=== PATIENT | male | born 1960 | race Caucasian/White ===

== ENCOUNTER → 2019-10-22 12:01 | Outpatient (CLI) | payer OTHER, SELFPAY ==
--- NOTE | ~2019-10-22 | XR_ITS ---
EXAMINATION: XR shoulder RT min 2V DATE: 10/22/2019 12:28 INDICATION: Right shoulder pain. TECHNIQUE: 4 views of right shoulder were obtained. COMPARISON: None. FINDINGS: Bone alignment is normal. No fracture. There is mild osteoarthritis of glenohumeral joint a nd acromioclavicular joint. IMPRESSION: 1. Mild polyarticular osteoarthritis. Reviewed, dictated and finalized at location B.
--- NOTE | ~2019-10-22 | XR_ITS ---
EXAMINATION: XR shoulder LT min 2V DATE: 10/22/2019 12:28 INDICATION: Left shoulder pain. TECHNIQUE: 4 views of left shoulder were obtained. COMPARISON: None. FINDINGS: Bone alignment is normal. No fracture. There is mild osteoarthritis of glenohumeral joint a nd acromioclavicular joint. IMPRESSION: 1. Mild polyarticular osteoarthritis. Reviewed, dictated and finalized at location B.
== END ==
PROVIDERS: PCP Family Medicine; Visit Provider Family Medicine
DX: M25.511 Pain in right shoulder (principal); M25.512 Pain in left shoulder; M19.012 Primary osteoarthritis, left shoulder; M19.011 Primary osteoarthritis, right shoulder
CPT/HCPCS: 73030

== ENCOUNTER → 2021-03-18 10:41 | Outpatient (CLI) | payer OTHER, SELFPAY ==
--- NOTE | ~2021-03-18 | XR_ITS ---
XR knee RT 3V DATE: 03/18/2021 10:57 INDICATION: Knee pain TECHNIQUE: AP, lateral, sunrise views COMPARISON: None FINDINGS: There is a lateral bipartite patella versus less likely old ununited patellar fracture. Probable infarct versus benign chondroid lesion along the distal femoral diametaphyseal area. Diffuse osteopenia. No fracture, dislocation, periosteal reaction or bone destruction is evident. Mild suprapatellar knee joint effusion is suggested. No radiopaque intra-articular loose body or chondrocalcinosis is noted. Knee joint spaces appear rela tively preserved. There is slight periarticular spurring of the medial tibial plateau. IMPRESSION: Probable bipartite patella Osteopenia Osteoarthritis at the medial compartment Reviewed, dictated and finalized at location A. MANAGER [employer]
--- NOTE | ~2021-03-18 | XR_ITS ---
XR knee LT 3V DATE: 03/18/2021 10:56 INDICATION: Knee pain TECHNIQUE: AP, lateral, sunrise views COMPARISON: None FINDINGS: There is diffuse osteopenia. There is prominent loss of joint space at the medial compartment with periarticular spurring. There i s mild periarticular spurring of the patellofemoral compartment. No fracture or dislocation, periosteal reaction or bone destruction. No joint effusion. No radiopaque intra-articular loose body or chondrocalcinosis is evident. IMPRESSION: Osteoarthritis involving particularly the medial compartment Reviewed, dictated and finalized at location A. [employer] SERVICES MANAGER
== END ==
PROVIDERS: PCP Family Medicine; Visit Provider Family Medicine
DX: M85.861 Other specified disorders of bone density and structure, right lower leg (principal); M17.0 Bilateral primary osteoarthritis of knee
CPT/HCPCS: 73562

== ENCOUNTER → 2021-07-22 07:42 | Outpatient (CLI) | payer OTHER, SELFPAY ==
--- NOTE | ~2021-07-22 | MR_ITS ---
EXAMINATION: MR knee LT wo con DATE: 07/22/2021 08:15 INDICATION: Left knee pain TECHNIQUE: Magnetic resonance imaging (MRI) of the left knee was performed without intravenous contra st. Sequences included coronal PD-weighted FSE, coronal PD-weighted FS FSE, sagittal T2-weighted FSE , sagittal PD-weighted FS FSE and axial PD weighted fat saturated FSE. COMPARISON: None. FINDINGS: Medial compartment: There is complex tear of the medial extruded medial meniscal body with longitudinal horizontal tear p henry which contacts the superior articular surface and which extends posteriorly into the posterior h orn. There is extensive full and near full-thickness cartilage loss with subtle irregularity to the a rticular cortex and scattered foci of mild subarticular edema-like marrow signal changes involving th e medial tibial plateau and weightbearing medial femoral condyle. Lateral compartment: Lateral meniscus is normal. Small region of chondral swelling and partial-thickness fissuring at the posterior medial aspect of the lateral tibial plateau. Articular cartilage in the remainder of the la teral compartment is otherwise normal. Patellofemoral compartment: Shallow chondral ulceration with full-thickness fissuring and mild underlying subarticular edema-like signal change at the medial patellar facet extending to the apical ridge. Cartilage at the lateral p atellar facet and trochlea remain normal. Ligaments and tendons: Anterior cruciate ligament is normal. Longitudinal split tear extending the length of the posterior c ruciate ligament. The medial collateral ligament and fibular collateral ligament complex are normal. Minimal laxity to the medial collateral ligament resulting from the joint space narrowing in the medi al compartment. The extensor mechanism is normal. The visualized medial and lateral hamstring tendons as well as the iliotibial band are normal. Fluid: Minimal left knee joint effusion at the suprapatellar pouch. A couple ganglion cysts posterior to the intercondylar notch measuring 1.5 cm and 1.3 cm in maximal diameters. No loose osteochondral bodies identified. Osseous/other: Normal marrow signal aside from the previous noted subarticular edema-like marrow signal changes in t he medial and patellofemoral compartments. No fracture or pathologic marrow replacing process. IMPRESSION: 1. Complex tear of the medial meniscus. 2. Tricompartmental osteoarthritis, severe with extensive high-grade chondromalacia in the medial com partment. 3. Longitudinal split tear extending the length of the posterior cruciate ligament. Reviewed, dictated and finalized at location A. IMPRESSION: 1. Complex tear of the medial meniscus. 2. Tricompartmental osteoarthritis, severe with extensive high-grade chondromal acia in the medial compartment. 3. Longitudinal split tear extending the length of the posterior cruciate ligam ent.
== END ==
PROVIDERS: PCP Family Medicine; Visit Provider Orthopaedic Surgery
DX: M17.12 Unilateral primary osteoarthritis, left knee (principal); S83.522A Sprain of posterior cruciate ligament of left knee, initial encounter; M22.42 Chondromalacia patellae, left knee
CPT/HCPCS: 73721

== ENCOUNTER 2022-02-24 07:41 | Outpatient (CLI) | payer OTHER, SELFPAY ==
--- NOTE | 2022-02-24 08:28 | ECG_ITS ---
Measurements Intervals [place] Rate: 64 P: -9 WA: 186 QRS: -1 QRSD: 90 T: 1 QT: 407 QTc: 422 Interpretive Statements SINUS RHYTHM INFERIOR MYOCARDIAL INFARCTION [40+ ms Q WAVE AND/OR ST/T ABNORMALITY IN II/aVF], PROBABLY OLD NO PREVIOUS ECG AVAILABLE FOR COMPARISON Electronically Signed On 02-24-2022 13:20:52 CERTIFIED PERSONAL CHEF by Mara Mckinely M.D.
[2022-02-24 09:10] LABS: Basophils Percent Auto 0.6 % (0.2-1.2); Eosinophils Absolute Auto 0.1 K/mm3 (0-0.3); Eosinophils Percent Auto 1.7 % (0-4.4); Hematocrit 44.2 % (42.0-52.0); Hemoglobin 15.2 g/dL (14.0-18.0); Immature Granulocyte Absolute 0.04 K/mm3 (0.00-0.031); Immature Granulocyte Percent A 0.6 % (0-0.5); Lymphocytes Absolute Auto 2.23 K/mm3 (0.9-3.2); Lymphocytes Percent Auto 33.8 % (18.3-44.2); Mean Corpuscular HGB Conc 34.4 g/dl (32-36); Mean Corpuscular Hemoglobin 31.7 pg (26-34); Mean Corpuscular Volume 92.3 fl (80-100); Mean Platelet Volume 9.1 fl (7.4-10.4); Monocytes Absolute Auto 0.5 K/mm3 (0.1-0.6); Monocytes Percent Auto 7.3 % (2.6-8.5); Neutrophils Absolute Auto 3.7 K/mm3 (1.3-6.7); Platelet Count Result 266 k/mm3 (150-375); Red Blood Count 4.79 M/mm3 (4.6-6.20); Red Cell Distribution Width 12.1 % (11.5-14.5); White Blood Count 6.6 K/mm3 (4.5-10.0)
[2022-02-24 09:13] LABS: Urine Cotinine NEGATIVE
[2022-02-24 09:14] LABS: Albumin Level 4.7 g/dL (3.5-5.1)
[2022-02-24 09:14] LABS: Hemoglobin A1C 5.5 % (<5.7)
[2022-02-24 09:17] LABS: Anion Gap 7 mmol/L (8-16); Blood Urea Nitrogen 16 mg/dL (9-20); Calcium 9.2 mg/dL (8.4-10.2); Carbon Dioxide 30 mmol/L (22-30); Chloride 104 mmol/L (98-107); Estimated Glomerular Filt Rate > 60; Glucose 102 mg/dL (65-110); Sodium 141 mmol/L (137-145)
== END 2022-02-24 07:42 | disposition home or self-care (01) ==
PROVIDERS: Anesthesiology; PCP Emergency Medicine; Visit Provider Orthopaedic Surgery
DX: M17.12 Unilateral primary osteoarthritis, left knee (principal); I10 Essential (primary) hypertension; Z01.818 Encounter for other preprocedural examination
CPT/HCPCS: 80048; 80307; 82040; 83036; 85025; 86850; 86900; 86901; 87081; 93005

== ENCOUNTER 2022-03-02 00:17 | Day surgery (SDC) | payer OTHER, SELFPAY ==
[2022-02-24 07:49] VITALS: BMI 27.5
[2022-02-24 08:05] VITALS: BP 114/80; PULSE 72; RESP 18; TEMP 36.6; O2SAT 98
--- NOTE | 2022-02-24 08:09 | PC.NURSE ---
Report to the Outpatient Waiting Room, entrance under the green pavilion located off [facility], at time __729 on date _03/02/22 . Planned Procedure Time: . Time changes happen often and if your time is changed the preop area will call you the afternoon before. - You and your visitor will be asked to self-screen and do not enter if you have any COVID symptoms. - Only one visitor is requested with a max of two and NO children visitors are allowed at this time. - The patient visitor may be requested to leave or wait in car when not with patient due to distancing restrictions. - A mask is optional within the hospital. Patients may have clear liquids (water, carbonated beverages, clear teas, apple juice) until 3 hours prior to surgery with a maximum of 20 ounces. - No food from midnight until time of surgery - Infants may have breast milk until 4 hours before surgery, infant formula 6 hours prior to surgery. - Children will be allowed to drink immediately following surgery. If applicable, please bring a bottle or sippy cup to assist with drinking. Juice, water, soda, and popsicles are readily available. For infants on formula, please bring formula the day of surgery. Pacifiers are allowed. Take the following medications with a SIP of water the morning of surgery: _FLUOXETINE Medications to discontinue per physician ALL VITAMINS AND SUPPLEMENTS 3 DAYS PRE OP Date to take last dose___02/26/22 Please no make-up, nail greenlandic, hairspray, perfume, deodorant, or body powder the day of surgery. No jewelry (including any body piercings) or valuables the day of surgery, leave them at home. Please take a shower or bath the night before, or the morning of, surgery with an antibacterial soap. Wear comfortable, loose fitting clothing. Children are encouraged to wear pajamas. - Jewelry must be removed prior to entering the operating room. Rings and piercings that are not removed may be cut off. - The hospital will not accept responsibility for valuables. - Please leave all valuables, including medications, at home the day of surgery. If you are going home after surgery, a licensed special needs bus driver must drive you home. - NO public transportation without another adult if you receive anesthesia. - We recommend that an adult stay with you for 24 hours following discharge. - We also recommend that you do not drive, make important decision, drink alcoholic beverages, or take any drugs that were not prescribed by your health care provider for at least 24 hours after your discharge time. Follow any additional instructions given to you from your surgeon. If you or anyone in your household have experienced Covid symptoms in the past week, please notify your surgeon or the nurse liaison at the phone number below for possible testing. VERBAL AND WRITTEN instructions given to __PATIENT and asked if any additional questions and then verbalized understanding. Patient advised to call surgeon office or pre surgery nurse liaison [phone] if any additional questions.
[2022-03-02] VITALS (18 sets, daily range): BP systolic 105–138; BP diastolic 69–93; PULSE 71–100; RESP 12–16; TEMP 36.2–37; O2SAT 90–100; BMI 26.9
--- NOTE | ~2022-03-02 | XR_ITS ---
Left Knee Technique: AP and lateral views were obtained. Clinical History: Postoperative COMPARISON: 03/18/2021 Findings: Patient is status post medial compartment hemiarthroplasty. No hardware convocation identif ied. There is minimal degenerative change of the patellofemoral compartment. Lateral compartment is u nremarkable. Postoperative changes noted in the soft tissues. No joint effusion is seen. Impression: Status post medial compartment hemiarthroplasty. Minimal degenerative change of the patellofemoral compartment. Reviewed, dictated and finalized at location M. [employer] ASSEM[employer]ER [employer]ER Impression: Status post medial compartment hemiarthroplasty. Minimal degenerative change of the patellofemoral compartment.
[2022-03-02] MEDS: ACETAMINOPHEN 500 MG TABLET 1000 MG PO (07:16)
[2022-03-02] MEDS: LACTATED RINGERS 1,000 ML 30 ML IV CONT ×3 (07:25→10:05)
[2022-03-02] MEDS: TRANEXAMIC ACID 1,000MG/ISO100 1,000 MG/100 ML BAG 200 MG IVPB (07:28)
--- NOTE | 2022-03-02 07:39 | WPDHPUPDATE1 ---
History and Physical Update Update Date/Time: 03/02/22 07:39 History and Physical has been reviewed, including an updated exam of the patient. There are NO changes in the patient's condition. Risks, benefits, and alternatives have been discussed and questions answered. Patient agrees to proceed with procedure.
[2022-03-02] MEDS: ceFAZolin 2 GM/D5W 50 ML 2 GM/50 ML BAG IVPB ×2 (07:55→16:09)
--- NOTE | 2022-03-02 07:55 | WPDANESPNB ---
Anes - Peripheral Nerve Block Date/Time: 03/02/22 07:55 I have discussed with the patient/family/POA the placement of a peripheral nerve block for post-operative pain management, including associated risks, benefits, complications, and side effects. Alternative methods of post-operative analgesia were detailed. Questions were solicited and answers provided to the satisfaction of the patient/family/POA. Time-Out: A pre-procedural Time-Out was completed immediately before starting the procedure and confirmed: Patient Identification, Site, Procedure, Patient Position and the Availability of Requisite Equipment. Clinical Indications: Acute post-operative pain management requested by the operative surgeon. Nerve Block Insertion Note Anes-nerve block: adductor canal left Patient position: supine Skin prep: chlorhexidine Needle: 22 gauge, stimulating, insulated echogenic needle. Needle length: 80 mm Technique: ultrasound Technique comment: mid2mg [id number] Injectate: bupivacaine 0.5% with epi 5 mcg/ml (30ml) Observations: tolerated well Complications: none Procedure start time:: 744 Procedure end time:: 0
--- NOTE | 2022-03-02 07:58 | WPDANESEPPF ---
Anes - Initial Pre Proc Eval Procedure: Operation Date: 03/02/22 07:30 Proposed Procedures p Left Knee Partial Replacement - Raghav Calzada MD Date/Time: 03/02/22 07:58 Surgeon: Raghav Calzada MD Pre Op Diagnosis: OA left knee Patient Data Age: 62 Gender: M Height: 1.85 m Weight: 92.5 kg Last Vital Signs Temp 36.2 C L 03/02/22 07:30 Pulse 82 03/02/22 07:30 Resp 16 03/02/22 07:30 BP 138/75 03/02/22 07:30 Pulse Ox 100 03/02/22 07:30 O2 Del Method Room Air 03/02/22 07:30 Allergies Allergy/AdvReac Type Severity Reaction Status Date / Time No Known Allergies Allergy Verified 02/24/22 10:22 Home Medications Medication Instructions Recorded Confirmed Type atorvastatin 40 mg tablet See Rx Instructions .Route 01/11/22 03/02/22 Rx .COMPLEX #90 tabs doxepin 50 mg capsule See Rx Instructions .Route 01/11/22 03/02/22 Rx .COMPLEX #90 caps fluoxetine 20 mg capsule See Rx Instructions .Route 01/11/22 03/02/22 Rx .COMPLEX #90 caps lisinopril 20 See Rx Instructions .Route 01/11/22 03/02/22 Rx mg-hydrochlorothiazide 25 mg tablet .COMPLEX #90 tabs zolpidem 10 mg tablet 10 mg PO .QD #90 tabs 01/11/22 03/02/22 Rx acetaminophen 650 mg 1,300 mg PO Q12H PRN Pain 02/24/22 03/02/22 History tablet,extended release (Tylenol Arthritis Pain) glucosamine-chondroitin 250 mg-200 1 tablet PO DAILY 02/24/22 03/02/22 History mg tablet (Osteo Bi-Flex) lysine 500 mg tablet (L-Lysine) 500 mg PO DAILY 02/24/22 03/02/22 History multivitamin 1 tablet PO DAILY 02/24/22 03/02/22 History niacin 50 mg tablet 50 mg PO BID 02/24/22 03/02/22 History apixaban 5 mg tablet (Eliquis) 5 mg PO BID PE prophylaxis s/p 03/01/22 Rx surgery 14 days #28 tabs Patient hx anesthesia problems: none Family hx anesthesia problems: none Results Review: All pre-operative results and documents have been reviewed as part of the pre-operative evaluation. [facility] Past Medical History Medical History Degenerative arthritis of knee, bilateral Family History Family History Mother Diabetes mellitus Depression Hypertension Father Hypertension Family history of elevated blood lipids Family history of cardiovascular disease Social History Social History Smoking packs per day: 1 Smoking cigarettes per day: 20.0 Years smoked: 15 Smoking pack-years: 15.00 Smoking status: Former smoker Tobacco type: cigarettes Second hand tobacco smoke exposure: No Smoking end date: 03/14/96 Additional smoking assessment comments: DENIES ANY FORM OF TOBACCO USE. STATES CHEWED TOBACCO LAST WAS 01/27/22 Alcohol intake: never Living arrangements: with family Spiritual care concerns: No Anes - Eval Final PreProcedure Day of Procedure 03/02/22 07:58 Patient weight: overweight Heart: regular rate and rhythm Lungs: clear to auscultation Airway: Mallampati scale class 1 Neurological: alert and oriented Last oral intake: >/= 8 hours ASA classification: III Emergent: no Anesthetic plan: proceed Anesthesia type and monitoring: general LMA and standard monitoring Results Review: All pre-operative results and documents have been reviewed as part of the pre-operative evaluation. Informed Consent: The patient's anesthetic plan and its attendant risks and benefits were discussed with the patient/family/POA. Questions were solicited and answers provided to the satisfaction of the patient/family/POA.
[2022-03-02] MEDS: ceFAZolin SODIUM 1 GM VIAL IV PUSH (09:17)
--- NOTE | 2022-03-02 10:05 | P.OP_ITS ---
Procedure Note - Detailed Date of Procedure 03/02/22 Pre-op Diagnosis OA left knee Post-op Diagnosis Same Procedure Performed Left knee medial unicompartmental replacement Surgeon Raghav Calzada MD Service Department Manager Melissa Abdalla Anesthesia General and Regional Description of Procedure The patient was identified and the proper site identified. In the preop holding area the anesthesia team performed a left lower extremity block. He was then taken to the operating room and transferred to the OR table placing him supine taking care to pad his torso and extremities. After general anesthetic induction and intubation. a nonsterile tourniquet was placed high on the left thigh. The extremity was positioned, prepped, and draped in the usual sterile fashion. The extremity was exsanguinated and the tourniquet was inflated to 300 mmHg remaining up for approximately 50 minutes. An anterior midline incision was made and sharp dissection carried down through the subcutaneous tissue to the extensor mechanism. A modified medial parapatellar arthrotomy was performed. The articular and meniscal cartilage of the lateral compartment was inspected and noted to be in excellent shape. Anterior and posterior cruciate ligaments were in continuity. There were extensive degenerative changes medial compartment and milder patellofemoral changes. The marginal osteophytes were removed from the notch and the medial aspect of the medial femoral condyle, and the remaining meniscal tissue was removed. The femur was sized to a medium. With the appropriate spoon and tibial guide, a tibial resection was made. This was sized to C. Using the mill, the flexion and extension gaps were balanced. A trial reduction was undertaken. The range of motion of the knee was noted to be from full extension to 120? of flexion with excellent stability through range of motion. The polyethylene insert tracked nicely. The trial components were removed. The real medium femur and size C tray for the left knee were cemented into place. The knee was held in about 30? of flexion while the cement cured. The tourniquet was released and excess cement was removed from the joint. Hemostasis was carried out. The knee was flushed with a copious amount of irrigation. After trialing, the appropriate real size 4 insert for the femoral component was inserted and the stability again assessed. The knee was noted to be stable as it was taken through range of motion. The periarticular tissues were injected with 60 mL of arthroplasty solution. Surgicel powder was applied deep to and superficial to the extensor mechanism. The extensor mechanism was repaired with 0 looped PDS suture, the subcu with 3-0 Monocryl and 2-0 Quill with tissue adhesive for the skin. A sterile dressing was applied. The patient tolerated the procedure well, was awakened, extubated, and taken to recovery room in stable condition. Estimated Blood Loss 200 Tourniquet Time 50 Drains No Packing No Pathology None sent Complications No immediate complications Condition Stable Disposition PACU [facility] Billing Surgery - Charge Forward: Surgery Billing ([id number])
[2022-03-02] MEDS: fentaNYL CITRATE INJ (*CRX) 100 MCG/2 ML VIAL 25 MCG IV PUSH ×8 (10:23→11:43)
[2022-03-02] MEDS: KETOROLAC 15 MG/ML VIAL (*BKC) IV PUSH ×2 (12:57→17:36)
[2022-03-02] MEDS: oxyCODONE HCL (*CRX) 5 MG TAB IR PO (13:12)
[2022-03-02] MEDS: ONDANSETRON INJ 4 MG/2 ML VIAL IV PUSH (13:12)
[2022-03-02] MEDS: SENNA/DOCUSATE SODIUM TABLET 2 TAB PO (16:14)
[2022-03-02] MEDS: oxyCODONE/ACETAMINOPHEN (*CRX) 5-325 MG TABLET 1 TABLET PO ×2 (16:14→20:02)
[2022-03-02] MEDS: NIACIN 50 MG TABLET PO (16:15)
[2022-03-02] MEDS: FAMOTIDINE 20 MG TABLET PO (20:02)
[2022-03-02] MEDS: DOXEPIN HCL 25 MG CAPSULE 50 MG PO (20:02)
[2022-03-02] MEDS: ZOLPIDEM TARTRATE (*CRX) 5 MG TABLET 10 MG PO (20:03)
[2022-03-03] MEDS: ceFAZolin 2 GM/D5W 50 ML 2 GM/50 ML BAG IVPB ×2 (00:41→08:50)
[2022-03-03] MEDS: KETOROLAC 15 MG/ML VIAL (*BKC) IV PUSH ×2 (00:41→05:49)
[2022-03-03] MEDS: oxyCODONE/ACETAMINOPHEN (*CRX) 5-325 MG TABLET 1 TABLET PO ×3 (00:42→08:56)
[2022-03-03 06:00] VITALS: BP 112/76; PULSE 72; RESP 16; TEMP 36.6; O2SAT 97
--- NOTE | 2022-03-03 07:21 | WPDANESPN ---
Anes - Prog Note Post-Op Date/Time: 03/03/22 07:21 Cardiovascular status: normal Respiratory status: normal Airway patency: baseline Mental status: baseline Post-Op hydration status: normal Vital Signs: Last Vital Signs Temp 36.6 C 03/03/22 06:00 Pulse 72 03/03/22 06:00 Resp 16 03/03/22 06:00 BP 112/76 03/03/22 06:00 Pulse Ox 97 03/03/22 06:00 O2 Del Method Room Air 03/02/22 12:40 O2 Flow Rate 2 03/02/22 12:15 Pain Score (VAS): 2 I/O: Intake & Output 03/02/22 03/02/22 03/03/22 15:59 23:59 07:59 Intake Total 740 520 600 Balance 740 520 600 Post-procedural complaints: none Patient Feedback: Patient satisfied with anesthetic care.
--- NOTE | 2022-03-03 07:41 | PM.DS ---
DS: Admitting Diagnosis Discharge Date 03/03/2022 Admitting Diagnosis Left knee osteoarthritis DS: Discharge Diagnosis Discharge Diagnosis (1) Status post left unicompartmental knee replacement: Code(s): Z96.652 - Presence of left artificial knee joint Status: Acute Plan 62-year-old male postop day 1 after left unicompartmental knee replacement with Dr. Calzada. Overall feeling very well this morning was able to participate with therapy yesterday. Dressing over the incision is clean and dry. No significant swelling or bruising at the surgical site. Postoperative wound care and medications were discussed in detail. Plan to remain 50% weight-bearing for a total of 6 weeks with a walker. He will follow up in 2 weeks in the office for wound check. He was informed to call our office with any further questions or concerns prior to his follow-up appointment. DS: Summary Hospital Course Reason for hospitalization: Observation after outpatient procedure Hospital Course: 62-year-old male admitted for observation after left unicompartmental knee replacement. Uneventful overnight stay. Pain is well controlled during exam this morning. Surgical dressing is clean and dry. He is also participated well with therapy yesterday and plan to do so again today prior to discharge. Postoperative instructions were discussed with this morning. Plan follow-up in 2 weeks for wound check Status at Discharge Functional status at discharge: uses cane/walker Overall status at discharge: patient is progressing back to baseline Time Spent with Patient Time attestation: Total time spent providing and/or coordinating discharge services: Time spent: Less than 30 minutes Exam Const: General: comfortable and no acute distress HENMT: Mouth: Yes moist mucous membranes Eyes: General: appearance normal, both eyes and all related structures Neck: Neck: supple Resp: Effort & Inspection: normal respiratory effort GI: Inspection: non-distended Skin: General skin exam: normal color and no erythema Neuro: Motor exam (neuro): Normal motor muscle tone present throughout Sensory Exam: normal sensation Extrem: Other: Exam of the left lower extremity demonstrates a clean and dry surgical dressing. No significant ecchymosis or swelling at the site. He is able to fully extend the knee with activation of the quadriceps. He is able to dorsiflex and plantar flex the foot without difficulty. Neurovascular status left lower extremity intact. Calves negative Psych: Mental Status: mental status grossly normal Radiology Reports: Comments: Left Knee Technique: AP and lateral views were obtained. Clinical History: Postoperative COMPARISON: 03/18/2021 Findings: Patient is status post medial compartment hemiarthroplasty. No hardware convocation identified. There is minimal degenerative change of the patellofemoral compartment. Lateral compartment is unremarkable. Postoperative changes noted in the soft tissues. No joint effusion is seen. Impression: Status post medial compartment hemiarthroplasty. Minimal degenerative change of the patellofemoral compartment. Reviewed, dictated and finalized at [facility]. T ADVISOR Discharge Plan Discharge Patient Disposition: Home, Self-Care Discharge Instructions: 3 times daily for 20 minutes each time, reclining in bed with ice packs over the incision and a pillow underneath the calf of the affected leg, not under the knee. Your wound is glued so it is okay to remove the dressing, get into the shower and get the wound wet in two days. Be sure to read through all the information that came from a my office and the hospital. Most of the answers you will need can be found that material. Call the office with any questions that you cannot find answers to, or concerns you may have. After the Chuckie
[2022-03-03 08:00] VITALS: O2SAT 97
[2022-03-03] MEDS: FAMOTIDINE 20 MG TABLET PO (08:54)
[2022-03-03] MEDS: SENNA/DOCUSATE SODIUM TABLET 2 TAB PO (08:54)
[2022-03-03] MEDS: APIXABAN 2.5 MG TABLET PO (08:55)
[2022-03-03] MEDS: hydroCHLOROthiazide 25 MG TABLET PO (08:55)
[2022-03-03] MEDS: FLUoxetine HCL 20 MG CAPSULE PO (08:55)
[2022-03-03] MEDS: NIACIN 50 MG TABLET PO (08:55)
[2022-03-03] MEDS: MULTIVITAMINS THERAPEUTIC TAB (*BKC) 1 TABLET PO (08:55)
[2022-03-03] MEDS: ATORVASTATIN 40 MG TABLET PO (08:55)
[2022-03-03] MEDS: lisinopriL 20 MG TABLET BY MOUTH (08:58)
[2022-03-03 09:18] VITALS: BP 132/89; PULSE 82; RESP 16; O2SAT 97
== END 2022-03-03 10:14 | disposition home or self-care (01) ==
LOC: ANHSURGERY 09:52 → ANHSUROVER 12:24
PROVIDERS: PCP Emergency Medicine; Visit Provider Orthopaedic Surgery
PROC: (CPT 27446; principal; 2022-03-02 07:30)
DX: M17.12 Unilateral primary osteoarthritis, left knee (principal); G89.18 Other acute postprocedural pain; Z87.891 Personal history of nicotine dependence
CPT/HCPCS: 27446; 64447; 73560; 80048; 80307; 82040; 83036; 85025; 86850; 86900; 86901; 87081; 93005; 97110; 97116; 97161; 97165; 97530; A9270; C1713; C1776; J0171; J0690; J1100; J1170; J1885; J2250; J2270; J2405; J2704; J2795; J3010; J7120

== ENCOUNTER 2022-03-11 14:39 | Inpatient (IN) | payer OTHER, SELFPAY ==
--- NOTE | ~2022-03-11 | US_ITS ---
EXAMINATION: US venous doppler [facility] DATE: 03/11/2022 16:35 INDICATION: Left lower limb pain. TECHNIQUE: Grayscale ultrasound images without and with compression and Doppler ultrasound images of the left lower extremity veins were obtained. COMPARISON: None. FINDINGS: The visualized portions of left common femoral vein, profunda (deep) femoral vein, femoral vein, popl iteal vein, peroneal veins, posterior tibial veins, and greater saphenous vein outflow are patent. IMPRESSION: 1. No deep venous thrombosis. Reviewed, dictated and finalized at location [facility] [employer]
[2022-03-11 14:44] VITALS: BP 124/90; PULSE 110; RESP 16; TEMP 36.2; O2SAT 100
[2022-03-11 15:11] LABS: Basophils Percent Auto 0.3 % (0.2-1.2); Eosinophils Absolute Auto 0.1 K/mm3 (0-0.3); Eosinophils Percent Auto 1.4 % (0-4.4); Hematocrit 37.7 % (42.0-52.0); Hemoglobin 12.8 g/dL (14.0-18.0); Lymphocytes Absolute Auto 1.71 K/mm3 (0.9-3.2); Lymphocytes Percent Auto 16.7 % (18.3-44.2); Mean Corpuscular Hemoglobin 32.2 pg (26-34); Mean Corpuscular Volume 94.7 fl (80-100); Mean Platelet Volume 8.2 fl (7.4-10.4); Monocytes Absolute Auto 0.9 K/mm3 (0.1-0.6); Monocytes Percent Auto 8.6 % (2.6-8.5); Neutrophils Absolute Auto 7.4 K/mm3 (1.3-6.7); Platelet Count Result 345 k/mm3 (150-375); Red Blood Count 3.98 M/mm3 (4.6-6.20); White Blood Count 10.3 K/mm3 (4.5-10.0)
[2022-03-11 15:20] LABS: Anion Gap 6 mmol/L (8-16); Blood Urea Nitrogen 15 mg/dL (9-20); Calcium 8.9 mg/dL (8.4-10.2); Carbon Dioxide 28 mmol/L (22-30); Chloride 103 mmol/L (98-107); Estimated CRCL calculation 83 ml/min; Estimated Glomerular Filt Rate > 60; Glucose 100 mg/dL (65-110); Potassium 4.4 mmol/L (3.4-5.0); Sodium 137 mmol/L (137-145)
[2022-03-11 15:38] LABS: INR 1.2; Prothrombin Time 14.6 Seconds (11.1-14.7)
[2022-03-11 15:39] LABS: Partial Thromboplastin Time 34.7 SECONDS (22.3-36.8)
--- NOTE | 2022-03-11 16:51 | ED.GENADULT ---
HPI - General Adult General Chief complaint: Recheck/Abnormal Lab/Rx Stated complaint: left knee redness, swelling Time Seen by Provider: 03/11/22 16:20 History of Present Illness HPI narrative: This is a 62-year-old male presenting ED with pain redness swelling of his left lower extremity. Patient had a knee operation on March 02. He is doing well until March 08 when he noticed increased pain and swelling of the joint. He contacted his orthopedic surgeon Dr. Calzada Who recommended he come to the ED for evaluation. Patient denies fever, chills, nausea vomiting or diarrhea. Related Data Home Medications Medication Instructions Recorded Confirmed acetaminophen 650 mg 1,300 mg PO Q12H PRN Pain 02/24/22 03/02/22 tablet,extended release (Tylenol Arthritis Pain) glucosamine-chondroitin 250 mg-200 1 tablet PO DAILY 02/24/22 03/02/22 mg tablet (Osteo Bi-Flex) lysine 500 mg tablet (L-Lysine) 500 mg PO DAILY 02/24/22 03/02/22 multivitamin 1 tablet PO DAILY 02/24/22 03/02/22 niacin 50 mg tablet 50 mg PO BID 02/24/22 03/02/22 Allergies Allergy/AdvReac Type Severity Reaction Status Date / Time No Known Allergies Allergy Verified 02/24/22 10:22 Review of Systems Review of Systems: CONSTITUTIONAL: Denies night sweats. EYES: No eye pain ENT: Denies rhinorrhea CARDIOVASCULAR: Denies palpitations RESPIRATORY: Denies hemoptysis GASTROINTESTINAL: Denies hematemesis GENITOURINARY: Denies hematuria. SKIN: Denies rash MUSCULOSKELETAL: Denies myalgia. NEUROLOGIC: Denies weakness. PSYCHIATRIC: Denies delusions [facility] Past Medical History Medical History Degenerative arthritis of knee, bilateral Family History Family History Mother Diabetes mellitus Depression Hypertension Father Hypertension Family history of elevated blood lipids Family history of cardiovascular disease Social History Social History Smoking packs per day: 1 Smoking cigarettes per day: 20.0 Years smoked: 15 Smoking pack-years: 15.00 Smoking status: Former smoker Tobacco type: cigarettes and smokeless tobacco Second hand tobacco smoke exposure: Yes (spouse smokes) Smoking end date: 03/14/98 Additional smoking assessment comments: DENIES ANY FORM OF TOBACCO USE. STATES CHEWED TOBACCO LAST WAS 01/27/22 Alcohol intake: never Substance use: never Substance use type: does not use Lack of Transportation: No Lack of Food: Never True Current Housing: I Have Housing Concerned About Future Housing: No Difficulty Paying Gas/Electric Bills: No Difficulty Paying for Meds: No Currently Unemployed: No Education: High School Diploma/GED Difficulty w/ Childcare or Family Care: No Spiritual care concerns: No Exam Narrative: APPEARANCE: No apparent distress. Head: atraumatic. EYES: EOMI, NOSE: Atraumatic NECK: Trachea midline RESPIRATORY: No increased rate of breathing CARDIOVASCULAR: RRR, ABDOMINAL: Non-distended MUSCULOSKELETAl: No obvious deformities NEURO: Alert. Moving 4/4 extremities SKIN:: Patient has areas of erythema, swelling and tenderness over the left lower extremity on the lateral portions of the leg and down the anterior mott. There is also some bruising in the posterior thigh and knee. PSYCHIATRIC: Normal affect Course Vital Signs Vital signs: Vital Signs Temperature 97.2 F L 03/11/22 14:44 Pulse Rate 110 H 03/11/22 14:44 Respiratory Rate 16 03/11/22 14:44 Blood Pressure 124/90 03/11/22 14:44 Pulse Oximetry 100 03/11/22 14:44 Temperature 97.2 F L 03/11/22 14:44 Pulse Rate 110 H 03/11/22 14:44 Respiratory Rate 16 03/11/22 14:44 Blood Pressure 124/90 03/11/22 14:44 Pulse Oximetry 100 03/11/22 14:44 Medical Decision Making MDM Narrative Medical decision making narrative:
[2022-03-11 17:24] VITALS: BP 110/96; PULSE 76; RESP 12; O2SAT 98
[2022-03-11] MEDS: ceFAZolin 2 GM/D5W 50 ML 2 GM/50 ML BAG IVPB (17:34)
[2022-03-11 18:19] LABS: Influenza A QL RT-PCR Negative (Negative); Influenza B QL RT-PCR Negative (Negative); RSV RNA, RT-PCR Negative (Negative); SARS-CoV-2 RNA PCR Negative
[2022-03-11] MEDS: HYDROcodone/acetaminophen (*CRX) 5-325 MG TABLET 1 TAB PO ×2 (18:38→23:02)
[2022-03-11 21:30] VITALS: BP 144/85; PULSE 101; RESP 18; TEMP 36.2; O2SAT 98
[2022-03-11 21:39] VITALS: BMI 27.6
--- NOTE | 2022-03-11 21:51 | ADMGEN ---
This patient, Roberto Carlos Hurley, was admitted to [facility] Surg Room 305-01. Patient/family oriented to hospital policies and general routines including ID bracelet, bed and alarms, visiting hours, pain management, procedures, bathroom and other care routines, personal items, smoking policy, room service/diet, and visiting hours. Information on how to activate the Rapid Response Team has been discussed. Patient/Family are encouraged to report perceived risks to care and to ask questions if they do not understand what they are told or what they should do.
[2022-03-11 22:12] VITALS: O2SAT 98
[2022-03-12] MEDS: ceFAZolin 2 GM/D5W 50 ML 2 GM/50 ML BAG IVPB ×3 (02:00→17:25)
[2022-03-12 06:00] VITALS: BP 113/67; PULSE 78; RESP 17; TEMP 36.2; O2SAT 96
[2022-03-12] MEDS: HYDROcodone/acetaminophen (*CRX) 5-325 MG TABLET 1 TAB PO ×3 (06:20→17:33)
[2022-03-12 06:55] LABS: Basophils Absolute Auto 0.1 K/mm3 (0.0-0.1); Basophils Percent Auto 0.7 % (0.2-1.2); Eosinophils Absolute Auto 0.2 K/mm3 (0-0.3); Eosinophils Percent Auto 2.6 % (0-4.4); Hematocrit 33.9 % (42.0-52.0); Hemoglobin 11.4 g/dL (14.0-18.0); Immature Granulocyte Absolute 0.06 K/mm3 (0.00-0.031); Immature Granulocyte Percent A 0.8 % (0-0.5); Lymphocytes Absolute Auto 1.69 K/mm3 (0.9-3.2); Lymphocytes Percent Auto 22.1 % (18.3-44.2); Mean Corpuscular HGB Conc 33.6 g/dl (32-36); Mean Corpuscular Hemoglobin 31.1 pg (26-34); Mean Corpuscular Volume 92.6 fl (80-100); Mean Platelet Volume 8.5 fl (7.4-10.4); Monocytes Absolute Auto 0.8 K/mm3 (0.1-0.6); Monocytes Percent Auto 10.1 % (2.6-8.5); Neutrophils Absolute Auto 4.9 K/mm3 (1.3-6.7); Neutrophils Percent Auto 63.7 % (45.5-73.1); Platelet Count Result 309 k/mm3 (150-375); Red Blood Count 3.66 M/mm3 (4.6-6.20); Red Cell Distribution Width 12.1 % (11.5-14.5); White Blood Count 7.6 K/mm3 (4.5-10.0)
[2022-03-12 08:00] VITALS: PULSE 78; RESP 17; O2SAT 96
--- NOTE | 2022-03-12 08:26 | PM.IMHP ---
H&P: HPI History of Present Illness Date/Time: 03/12/22 08:26 Chief Complaint: Left leg pain, cellulitis Narrative: 62-year-old male admitted for cellulitis of his left lower leg after recent unicompartmental left knee replacement on 03-02-[address] Calzada. He had been doing relatively well following the procedure it started to notice pain in the left lower leg associated with redness a few days ago. He denies any significant fevers or chills. He has been maintaining his 50% weight-bearing status on the left lower extremity without difficulty. He denies any drainage at the surgical site. He continues to take Eliquis for DVT prophylaxis. Venous doppler done in the ER has ruled out left lower extremity DVT. Review of Systems Review of Systems: All systems reviewed & are unremarkable except as noted in HPI and below Constitutional: Constitutional: Reports as per HPI and Reports no additional constitutional complaints Eyes: Eyes: Reports as per HPI and Reports no additional eye complaints ENT: Reports system reviewed and no additional complaints, except as documented, Reports as per HPI and Reports Normal hearing present Cardiovascular: Cardiovascular: Reports as per HPI and Reports no additional cardiovascular complaints Respiratory: Respiratory: Reports as per HPI, Reports no additional respiratory complaints and Denies dyspnea Gastrointestinal: Gastrointestinal: Reports no additional gastrointestinal complaints, Denies abdominal pain and Denies constipation Genitourinary: Genitourinary: Reports no additional male genitourinary complaints Musculoskeletal: Musculoskeletal: Reports as per HPI and Reports joint swelling (Left knee) Integumentary/Breasts: Skin/Breast: Reports as per HPI and Reports erythema (Left knee, left lower leg) Neurologic: Reports system reviewed and no additional complaints, except as documented, Denies Abnormal speech present and Denies confusion Psychiatric: Psychiatric: Reports no additional psychiatric complaints and Reports as per HPI [facility] Past Medical History Medical History Degenerative arthritis of knee, bilateral Family History Family History Mother Diabetes mellitus Depression Hypertension Father Hypertension Family history of elevated blood lipids Family history of cardiovascular disease Social History Social History Smoking packs per day: 1 Smoking cigarettes per day: 20.0 Years smoked: 15 Smoking pack-years: 15.00 Smoking status: Never smoker Tobacco type: cigarettes and smokeless tobacco Second hand tobacco smoke exposure: No Smoking end date: 03/14/98 Additional smoking assessment comments: DENIES ANY FORM OF TOBACCO USE. STATES CHEWED TOBACCO LAST WAS 01/27/22 Alcohol intake: never Substance use: never Substance use type: does not use Lack of Transportation: No Lack of Food: Never True Current Housing: I Have Housing Concerned About Future Housing: No Difficulty Paying Gas/Electric Bills: No Difficulty Paying for Meds: No Currently Unemployed: No Education: Trade/Vocational Certificate Difficulty w/ Childcare or Family Care: No Spiritual care concerns: No Meds Home Medications and Allergies Home Medications Medication Instructions Recorded Confirmed Type acetaminophen 650 mg 1,300 mg PO Q12H PRN Pain 02/24/22 03/11/22 History tablet,extended release (Tylenol Arthritis Pain) glucosamine-chondroitin 250 mg-200 1 tablet PO HS 02/24/22 03/11/22 History mg tablet (Osteo Bi-Flex) multivitamin 1 tablet PO DAILY 02/24/22 03/11/22 History niacin 50 mg tablet 50 mg PO BID 02/24/22 03/11/22 History apixaban 5 mg tablet (Eliquis) 5 mg PO BID PE prophylaxis s/p 03/01/22 03/11/22 Rx surgery 14 days #28 tabs oxycodone 5 mg tablet 5 mg PO Q4
[2022-03-12] MEDS: SENNA/DOCUSATE SODIUM TABLET 2 TAB PO ×2 (10:09→17:25)
[2022-03-12] MEDS: MULTIVITAMINS THERAPEUTIC TAB (*BKC) 1 TABLET PO (10:09)
[2022-03-12] MEDS: APIXABAN 5 MG TABLET PO ×2 (10:09→17:25)
[2022-03-12] MEDS: FLUoxetine HCL 20 MG CAPSULE PO (10:09)
[2022-03-12] MEDS: ATORVASTATIN 40 MG TABLET PO (10:09)
[2022-03-12] MEDS: NIACIN 50 MG TABLET PO ×2 (10:09→17:25)
[2022-03-12] MEDS: polyethylene glycoL 3350 17 GM POWD.PACK PO (10:09)
[2022-03-12 14:33] VITALS: BP 132/80; PULSE 101; RESP 17; TEMP 36.9; O2SAT 96
[2022-03-12] MEDS: ZOLPIDEM TARTRATE (*CRX) 5 MG TABLET 10 MG PO (20:49)
[2022-03-12] MEDS: DOXEPIN HCL 25 MG CAPSULE 50 MG PO (20:50)
[2022-03-12] MEDS: lisinopriL 20 MG TABLET PO (20:51)
[2022-03-12] MEDS: hydroCHLOROthiazide 25 MG TABLET PO (20:51)
[2022-03-12 22:00] VITALS: BP 130/87; PULSE 84; RESP 17; TEMP 35.9; O2SAT 97
[2022-03-13] MEDS: ceFAZolin 2 GM/D5W 50 ML 2 GM/50 ML BAG IVPB ×2 (02:29→08:04)
[2022-03-13 06:00] VITALS: BP 115/77; PULSE 89; RESP 18; TEMP 36.1; O2SAT 97
[2022-03-13 07:54] LABS: Basophils Percent Auto 0.5 % (0.2-1.2); Eosinophils Absolute Auto 0.2 K/mm3 (0-0.3); Eosinophils Percent Auto 1.9 % (0-4.4); Hematocrit 35.2 % (42.0-52.0); Hemoglobin 11.9 g/dL (14.0-18.0); Immature Granulocyte Absolute 0.07 K/mm3 (0.00-0.031); Immature Granulocyte Percent A 0.8 % (0-0.5); Lymphocytes Absolute Auto 1.52 K/mm3 (0.9-3.2); Lymphocytes Percent Auto 17.9 % (18.3-44.2); Mean Corpuscular HGB Conc 33.8 g/dl (32-36); Mean Corpuscular Hemoglobin 31.8 pg (26-34); Mean Corpuscular Volume 94.1 fl (80-100); Mean Platelet Volume 8.5 fl (7.4-10.4); Monocytes Absolute Auto 0.6 K/mm3 (0.1-0.6); Monocytes Percent Auto 7.2 % (2.6-8.5); Neutrophils Absolute Auto 6.1 K/mm3 (1.3-6.7); Neutrophils Percent Auto 71.7 % (45.5-73.1); Platelet Count Result 311 k/mm3 (150-375); Red Blood Count 3.74 M/mm3 (4.6-6.20); Red Cell Distribution Width 12.1 % (11.5-14.5); White Blood Count 8.5 K/mm3 (4.5-10.0)
[2022-03-13] MEDS: HYDROcodone/acetaminophen (*CRX) 5-325 MG TABLET 1 TAB PO (08:04)
[2022-03-13] MEDS: polyethylene glycoL 3350 17 GM POWD.PACK PO (08:05)
[2022-03-13] MEDS: SENNA/DOCUSATE SODIUM TABLET 2 TAB PO (08:05)
[2022-03-13] MEDS: NIACIN 50 MG TABLET PO (08:05)
[2022-03-13] MEDS: APIXABAN 5 MG TABLET PO (08:05)
[2022-03-13] MEDS: FLUoxetine HCL 20 MG CAPSULE PO (08:05)
[2022-03-13] MEDS: MULTIVITAMINS THERAPEUTIC TAB (*BKC) 1 TABLET PO (08:05)
--- NOTE | 2022-03-13 08:17 | PM.DS ---
DS: Admitting Diagnosis Discharge Date March 13, 2022 Admitting Diagnosis Left lower extremity cellulitis DS: Discharge Diagnosis Discharge Diagnosis (1) Cellulitis of left lower extremity: Code(s): L03.116 - Cellulitis of left lower limb Status: Acute Assessment and Plan: Responded very well to the IV antibiotics. Has been switched to Bactrim DS one p.o. b.i.d. to be taken for the next week. (2) Status post left unicompartmental knee replacement: Code(s): Z96.652 - Presence of left artificial knee joint Status: Acute Assessment and Plan: Has a follow-up appointment in my office this coming week. It was instructed to keep that. As far as his postoperative rehab which she is doing on his own and walker use, none of that has changed. Plan See above DS: Summary Hospital Course Reason for hospitalization: IV antibiotics for cellulitis left lower extremity. Hospital Course: Patient contacted the office concerned about redness and swelling left lower extremity. Was seen in the ER and the diagnosis of cellulitis made. Was admitted for IV antibiotics. Responded very well to these quickly and is going to be discharged home on oral antibiotics. Is going to be discharged on hospital day two. Status at Discharge Functional status at discharge: uses cane/walker (50% weight-bearing left lower extremity) Overall status at discharge: patient is progressing back to baseline Time Spent with Patient Time attestation: Total time spent providing and/or coordinating discharge services: Time spent: Less than 30 minutes Exam Const: General: cooperative, alert and awake Orientation/consciousness: patient oriented x3 HENMT: Head: normal to inspection Ears: hearing grossly normal bilaterally Resp: Effort & Inspection: able to speak in complete sentences GI: Inspection: non-distended GI Palp: No abdominal tenderness Neuro: General: patient oriented x3 Extrem: Other: Has got a bronze erythema much of left lower extremity consistent with extravasation of blood into the soft tissues. Area of cellulitis along the tibial crest receiving. No irritability with range of motion of the left knee. Only mild effusion left knee. Exam otherwise unremarkable. Psych: Mental Status: mental status grossly normal DS: Data Data Completed and Pending Labs on day of discharge: Labs from last 24 hours 03/13/22 07:15 WBC 8.5 RBC 3.74 L Hgb 11.9 L Hct 35.2 L MCV 94.1 MCH 31.8 MCHC 33.8 RDW 12.1 Plt Count 311 MPV 8.5 Immature Gran % (Auto) 0.8 H Neut % (Auto) 71.7 Lymph % (Auto) 17.9 L Talbot % (Auto) 7.2 Eos % (Auto) 1.9 Baso % (Auto) 0.5 Lymph # (Auto) 1.52 Talbot # (Auto) 0.6 Eos # (Auto) 0.2 Baso # (Auto) 0.0 Abs Immat Gran (auto) 0.07 H Absolute Neuts (auto) 6.1 Absolute Nucleated RBC 0.0 Nucleated RBC % 0.0 Discharge Plan Discharge Attending physician on discharge: Raghav Calzada Discharging Clinician: Raghav Calzada Anticipated Discharge Date/Time: 03/13/22 08:02 Patient Disposition: Home, Self-Care Activity: may shower, follow weight bearing status and other - see discharge instructions Diet: as tolerated Wound Care Instructions: other - see discharge instructions Discharge Instructions: Continue to use the walker full-time with only 50% weight left lower extremity until the six week point from surgery. Take all of the oral antibiotics that are prescribed. Keep her follow-up appointment this coming Tuesday. Contact the office with any questions prior to this. Ice and elevate the left lower extremity to help keep swelling down. Continue to do your knee therapy exercises every day. Stand Alone Forms: General Discharge Information Follow-up/Referrals: Raghav Calzada MD [Physician] - Discharge Medications: New sulfamethoxazole-trimethoprim 800-160 mg tablet 1 tablet PO Q12H Qty: 14 0RF Continued multivitamin
== END 2022-03-13 10:50 | disposition home or self-care (01) | DRG 920 ==
LOC: ANHED 16:56 → ANH3MEDSUR 21:21
PROVIDERS: Emergency Medicine; Nurse Practitioner; Admitting Provider Orthopaedic Surgery; Emergency Provider Emergency Medicine; PCP Emergency Medicine; Visit Provider Orthopaedic Surgery
DX: L76.82 Other postprocedural complications of skin and subcutaneous tissue (principal); L03.116 Cellulitis of left lower limb; Z96.652 Presence of left artificial knee joint; M17.0 Bilateral primary osteoarthritis of knee; Z20.822 Contact with and (suspected) exposure to COVID-19; Z87.891 Personal history of nicotine dependence
CPT/HCPCS: 36415; 80048; 85025; 85610; 85730; 87637; 93971; 96365; 99285; A9270; J0690

== ENCOUNTER 2022-11-29 07:15 | Day surgery (SDC) | payer OTHER, SELFPAY ==
[2022-11-09 13:41] VITALS: BMI 26.2
[2022-11-29] MEDS: LACTATED RINGERS 1,000 ML 150 ML IV CONT (08:10)
--- NOTE | 2022-11-29 08:17 | PM.HPGS ---
History of Present Illness History of Present Illness Consent: Risks, benefits, and alternatives have been discussed and questions answered. Patient agrees to proceed with procedure. Chief complaint: Neoplasm Screening Narrative: Roberto Carlos Hurley is a 62 year old male Presents for screening colonoscopy. Patient's current weight appetite and bowel movements are normal. Patient denies abdominal pain. He has had no bleeding. Family history is noncontributory. Patient denies any abdominal pain. Patient's previous colonoscopy 10 or 11 years ago was unremarkable. Review of Systems Review of Systems: Review of systems is noncontributory. 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 Calzada History of tonsillectomy Family History Family History Mother Diabetes mellitus Depression Hypertension Father Hypertension Family history of elevated blood lipids Family history of cardiovascular disease Social History Social History Smoking packs per day: 1 Smoking cigarettes per day: 20.0 Years smoked: 15 Smoking pack-years: 15.00 Smoking status: Former smoker Tobacco type: cigarettes Smokeless tobacco user: chewing tobacco Second hand tobacco smoke exposure: No Smoking end date: 03/14/98 Additional smoking assessment comments: patient currently uses chewing tobacco Alcohol intake: never Substance use: never Substance use type: does not use Lack of Transportation: No Lack of Food: Never True Current Housing: I Have Housing Concerned About Future Housing: No Difficulty Paying Gas/Electric Bills: No Difficulty Paying for Meds: No Currently Unemployed: No Education: High School Diploma/GED Difficulty w/ Childcare or Family Care: No Living arrangements: with family Occupation/Education: retired Spiritual care concerns: No Meds Home Medications and Allergies Home Medications Medication Instructions Recorded Confirmed Type acetaminophen 650 mg 1,300 mg PO Q12H PRN Pain 02/24/22 11/29/22 History tablet,extended release (Tylenol Arthritis Pain) glucosamine-chondroitin 250 mg-200 1 tablet PO HS 02/24/22 11/29/22 History mg tablet (Osteo Bi-Flex) multivitamin 1 tablet PO DAILY 02/24/22 11/29/22 History niacin 50 mg tablet 50 mg PO BID 02/24/22 11/29/22 History atorvastatin 40 mg tablet 40 mg PO DAILY 03/11/22 11/29/22 History doxepin 50 mg capsule 50 mg PO QHS 03/11/22 11/29/22 History lisinopril 20 1 tablet PO HS 03/11/22 11/29/22 History mg-hydrochlorothiazide 25 mg tablet zolpidem 10 mg tablet 10 mg PO HS #90 tabs 09/08/22 11/29/22 Rx sodium,potassium,mag sulfates 17.5 See Rx Instructions PO .COMPLEX 09/30/22 11/29/22 Rx gram-3.13 gram-1.6 gram oral soln #354 mL (Suprep Bowel Prep Kit) fluoxetine 20 mg capsule 20 mg PO QAM #90 caps 10/08/22 11/29/22 Rx Allergies Allergy/AdvReac Type Severity Reaction Status Date / Time No Known Allergies Allergy Verified 11/29/22 07:58 Exam Narrative: Physical exam reveals patient signs stable. HEENT exam is unremarkable. Patient is anicteric. Lungs ar clear to auscultation and percussion. Heart is without murmur or extra sounds. Abdomen bowel sounds are present soft nontender with no organomegaly. Digital external rectal exam is normal. Assessment and Plan Assessment and plan (1) Encounter for screening colonoscopy: Code(s): Z12.11 - Encounter for screeni
--- NOTE | 2022-11-29 08:53 | WPDANESEPPF ---
Anes - Initial Pre Proc Eval Procedure: Operation Date: 11/29/22 09:30 Proposed Procedures p Screening Colonoscopy - Jovan Mott MD Date/Time: 11/29/22 08:53 Surgeon: Jovan Mott MD Pre Op Diagnosis: Neoplasm Screening Patient Data Age: 62 Gender: M Height: 1.85 m Weight: 89.9 kg Allergies Allergy/AdvReac Type Severity Reaction Status Date / Time No Known Allergies Allergy Verified 11/29/22 07:58 Home Medications Medication Instructions Recorded Confirmed Type acetaminophen 650 mg 1,300 mg PO Q12H PRN Pain 02/24/22 11/29/22 History tablet,extended release (Tylenol Arthritis Pain) glucosamine-chondroitin 250 mg-200 1 tablet PO HS 02/24/22 11/29/22 History mg tablet (Osteo Bi-Flex) multivitamin 1 tablet PO DAILY 02/24/22 11/29/22 History niacin 50 mg tablet 50 mg PO BID 02/24/22 11/29/22 History atorvastatin 40 mg tablet 40 mg PO DAILY 03/11/22 11/29/22 History doxepin 50 mg capsule 50 mg PO QHS 03/11/22 11/29/22 History lisinopril 20 1 tablet PO HS 03/11/22 11/29/22 History mg-hydrochlorothiazide 25 mg tablet zolpidem 10 mg tablet 10 mg PO HS #90 tabs 09/08/22 11/29/22 Rx sodium,potassium,mag sulfates 17.5 See Rx Instructions PO .COMPLEX 09/30/22 11/29/22 Rx gram-3.13 gram-1.6 gram oral soln #354 mL (Suprep Bowel Prep Kit) fluoxetine 20 mg capsule 20 mg PO QAM #90 caps 10/08/22 11/29/22 Rx Patient hx anesthesia problems: none Family hx anesthesia problems: none Results Review: All pre-operative results and documents have been reviewed as part of the pre-operative evaluation. 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 Calzada History of tonsillectomy Family History Family History Mother Diabetes mellitus Depression Hypertension Father Hypertension Family history of elevated blood lipids Family history of cardiovascular disease Social History Social History Smoking packs per day: 1 Smoking cigarettes per day: 20.0 Years smoked: 15 Smoking pack-years: 15.00 Smoking status: Former smoker Tobacco type: cigarettes Smokeless tobacco user: chewing tobacco Second hand tobacco smoke exposure: No Smoking end date: 03/14/98 Additional smoking assessment comments: patient currently uses chewing tobacco Alcohol intake: never Substance use: never Substance use type: does not use Lack of Transportation: No Lack of Food: Never True Current Housing: I Have Housing Concerned About Future Housing: No Difficulty Paying Gas/Electric Bills: No Difficulty Paying for Meds: No Currently Unemployed: No Education: High School Diploma/GED Difficulty w/ Childcare or Family Care: No Living arrangements: with family Occupation/Education: retired Spiritual care concerns: No Anes - Eval Final PreProcedure Day of Procedure 11/29/22 08:53 Patient weight: normal Heart: regular rate and rhythm Lungs: decreased breath sounds Airway: Mallampati scale class 1 Neurological: alert and oriented Last oral intake: >/= 8 hours ASA classification: III Emergent: no Anesthetic plan: proceed Anesthesia type and monitoring: general GIVS and standard monitoring Results Review: All pre-operative results and documents have been reviewed as part of the pre-operative evaluation. Informed Consent: The patient's anesthetic plan and its attendant risks and benefits were discussed with the patient/family
[2022-11-29 09:13] VITALS: BP 109/81; PULSE 77; RESP 16; TEMP 36.8; O2SAT 97
[2022-11-29 09:41] VITALS: BP 108/60; PULSE 78; RESP 14; O2SAT 95
[2022-11-29 09:51] VITALS: BP 112/89; PULSE 66; RESP 14; O2SAT 99
[2022-11-29 10:01] VITALS: BP 121/75; PULSE 64; RESP 15; O2SAT 99
--- NOTE | 2022-11-29 10:33 | WPDANESPN ---
Anes - Prog Note Post-Op Date/Time: 11/29/22 10:33 Cardiovascular status: normal Respiratory status: normal Airway patency: baseline Mental status: baseline Post-Op hydration status: normal Vital Signs: Last Vital Signs Temp 36.8 C 11/29/22 09:13 Pulse 64 11/29/22 10:01 Resp 15 11/29/22 10:01 BP 121/75 11/29/22 10:01 Pulse Ox 99 11/29/22 10:01 O2 Del Method Room Air 11/29/22 10:01 Pain Score (VAS): 0 I/O: Intake & Output 11/28/22 11/29/22 11/29/22 23:59 07:59 15:59 Intake Total 800 Balance 800 Patient Feedback: Patient satisfied with anesthetic care.
== END 2022-11-29 10:21 | disposition home or self-care (01) ==
PROVIDERS: PCP Emergency Medicine; Visit Provider Internal Medicine Gastroenterology
PROC: 0DJD8ZZ Inspection of Lower Intestinal Tract, Via Natural or Artificial Opening Endoscopic (ICD-10-PCS; CPT 45378; principal; 2022-11-29 09:30)
DX: Z12.11 Encounter for screening for malignant neoplasm of colon (principal); K57.30 Diverticulosis of large intestine without perforation or abscess without bleeding; K64.8 Other hemorrhoids
CPT/HCPCS: 45378

== ENCOUNTER 2023-02-02 12:50 | Outpatient (CLI) | payer OTHER, SELFPAY ==
--- NOTE | 2023-02-02 12:58 | ECG_ITS ---
Measurements Intervals Stout Rate: 88 P: -13 MS: 174 QRS: -4 QRSD: 93 T: 5 QT: 362 QTc: 439 Interpretive Statements SINUS RHYTHM LOW QRS VOLTAGE IN PRECORDIAL LEADS VOLTAGE CRITERIA FOR LVH CONSIDER INFERIOR INFARCT, AGE INDETERMINATE BASELINE ARTIFACT- I, II, III, AVR, AVL ABNORMAL ECG COMPARED TO ECG 02/24/2022 08:52:33 NO SIGNIFICANT CHANGES Electronically Signed On 02-02-2023 19:57:27 CHAIRMAN & CEO by Jeet Rose D.O.
[2023-02-02 13:29] LABS: Anion Gap 12 mmol/L (8-16); Blood Urea Nitrogen 15 mg/dL (9-20); Calcium 9.7 mg/dL (8.4-10.2); Carbon Dioxide 27 mmol/L (22-30); Chloride 100 mmol/L (98-107); Estimated Glomerular Filt Rate > 60; Glucose 103 mg/dL (65-110); Potassium 3.8 mmol/L (3.4-5.0); Sodium 139 mmol/L (137-145)
== END 2023-02-02 12:51 | disposition home or self-care (01) ==
LOC: ANHSURGERY 12:53
PROVIDERS: Anesthesiology; PCP Emergency Medicine; Visit Provider Surgery
DX: K46.9 Unspecified abdominal hernia without obstruction or gangrene (principal); Z79.899 Other long term (current) drug therapy; I10 Essential (primary) hypertension; R94.31 Abnormal electrocardiogram [ECG] [EKG]
CPT/HCPCS: 36415; 80048; 86850; 86900; 86901; 93005

== ENCOUNTER 2023-02-11 00:22 | Day surgery (SDC) | payer OTHER, SELFPAY ==
--- NOTE | 2023-02-01 13:58 | PC.NURSE ---
Report to the Outpatient Waiting Room, entrance under the green pavilion located off [facility], at time _0630_ on date _02/11/23_. Planned Procedure Time: _0830__. Time changes happen often and if your time is changed the preop area will call you the afternoon before. - You and your visitor will be asked to self-screen and do not enter if you have any COVID symptoms. - A mask is optional within the hospital at this time. Patients may have clear liquids (water, carbonated beverages, clear teas, apple juice) until 3 hours prior to surgery with a maximum of 20 ounces. - No food from midnight until time of surgery - Infants may have breast milk until 4 hours before surgery, infant formula 6 hours prior to surgery. - Children will be allowed to drink immediately following surgery. If applicable, please bring a bottle or sippy cup to assist with drinking. Juice, water, soda, and popsicles are readily available. For infants on formula, please bring formula the day of surgery. Pacifiers are allowed. Take the following medications with a SIP of water the morning of surgery: __Fluoxetine ___ DO NOT STOP ANY OF YOUR OTHER PRESCRIPTION MEDICATIONS PRIOR TO SURGERY ?EXCEPT THE FOLLOWING Medications to discontinue per physician _Vitamins or supplements _3 days prior Date to take last dose Please no make-up, nail swedish, hairspray, perfume, deodorant, or body powder the day of surgery. No jewelry (including any body piercings) or valuables the day of surgery, leave them at home. Please take a shower or bath the night before, or the morning of, surgery with an antibacterial soap. Wear comfortable, loose fitting clothing. Children are encouraged to wear pajamas. - Jewelry must be removed prior to entering the operating room. Rings and piercings that are not removed may be cut off. - The hospital will not accept responsibility for valuables. - Please leave all valuables, including medications, at home the day of surgery. If you are going home after surgery, a licensed driver lifter of sanitation truck must drive you home. - NO public transportation without another adult if you receive anesthesia. - We recommend that an adult stay with you for 24 hours following discharge. - We also recommend that you do not drive, make important decision, drink alcoholic beverages, or take any drugs that were not prescribed by your health care provider for at least 24 hours after your discharge time. For Pediatric surgeries, we recommend two adults accompany the child home. Follow any additional instructions given to you from your surgeon. If you or anyone in your household have experienced Covid symptoms in the past week, please notify your surgeon or the nurse liaison at the phone number below for possible testing. Telephone instructions given to _patient__and asked if any additional questions and then verbalized understanding. Patient advised to call surgeon office or pre surgery nurse liaison [phone] if any additional questions.
[2023-02-01 14:11] VITALS: BMI 26.1
--- NOTE | 2023-02-07 16:24 | PM.SD2 ---
Same Day Admit/Disch: HPI History of Present Illness Chief complaint: bilateral inguinal hernias Narrative: Roberto Carlos Hurley is a 63 year old male whom I saw last summer. He had been noticing pain in his right groin with heavy exertion. Particularly he rides his bicycle over 10 miles a day. He notices particular discomfort while riding his bike. He had an exam with his primary care provider, Fred Leung PA-C. She was able to palpate a right inguinal hernia. I saw him in August and he had a reducible right inguinal hernia which was sizable. He also had a smaller left inguinal hernia which had been causing him no symptoms. After discussion of the alternatives and the recommended procedure, he wishes to proceed with robotic laparoscopic repair of bilateral inguinal hernias with mesh. He wanted to wait and do this in the winter time and we plan to go ahead on February 11 as scheduled. 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 Calzada History of tonsillectomy Family History Family History Mother Diabetes mellitus Depression Hypertension Father Hypertension Family history of elevated blood lipids Family history of cardiovascular disease Social History Social History Smoking packs per day: 1 Smoking cigarettes per day: 20.0 Years smoked: 15 Smoking pack-years: 15.00 Smoking status: Former smoker Tobacco type: smokeless tobacco Smokeless tobacco user: chewing tobacco Second hand tobacco smoke exposure: No Smoking end date: 03/14/98 Additional smoking assessment comments: Chewing tobacco- 20 years Alcohol intake: never Substance use: never Substance use type: does not use Living arrangements: with family Occupation/Education: retired Spiritual care concerns: No Same Day Admit/Disch: Med Pre-admit Medications Home Medications Medication Instructions Recorded Confirmed Type acetaminophen 650 mg 1,300 mg PO DAILY PRN Pain 02/24/22 02/11/23 History tablet,extended release (Tylenol Arthritis Pain) glucosamine-chondroitin 250 mg-200 1 tablet PO DAILY 02/24/22 02/11/23 History mg tablet (Osteo Bi-Flex) multivitamin 1 tablet PO DAILY 02/24/22 02/11/23 History niacin 50 mg tablet 50 mg PO BID 02/24/22 02/11/23 History fluoxetine 20 mg capsule 20 mg PO QAM #90 caps 10/08/22 02/11/23 Rx atorvastatin 40 mg tablet 40 mg PO DAILY #90 tabs 12/21/22 02/11/23 Rx doxepin 50 mg capsule 50 mg PO QHS #90 caps 12/21/22 02/11/23 Rx lisinopril 20 1 tablet PO HS #90 tabs 12/21/22 02/11/23 Rx mg-hydrochlorothiazide 25 mg tablet zolpidem 10 mg tablet 10 mg PO HS #180 tabs 12/21/22 02/11/23 Rx ketorolac 10 mg tablet 10 mg PO Q6H 4 days #16 tabs 02/11/23 Rx oxycodone-acetaminophen 5 mg-325 0.5 - 1 tablet PO Q6H PRN pain #10 02/11/23 Rx mg tablet tabs Review of Systems Review of Systems All systems reviewed & are unremarkable except as noted in HPI and below (HPI and those items noted below) Constitutional Constitutional: Denies chills and Denies fever(s) Cardiovascular Cardiovascular: Denies chest pain, Denies diaphoresis, Denies dyspnea and Denies paroxysmal nocturnal dyspnea Respiratory Respiratory: Denies chest congestion, Denies cough and Denies dyspnea Integumentary/Breasts Skin/Breast: Denies lesions and Denies rash Psychiatric Psychiatric: Reports abnormal sleep pattern (Insomnia, corrected with doxepin and zolpidem) Exam Const: General:
[2023-02-11] VITALS (10 sets, daily range): BP systolic 101–120; BP diastolic 55–75; PULSE 58–76; RESP 12–20; TEMP 36.2–36.3; O2SAT 92–100; BMI 26.3
[2023-02-11] MEDS: LACTATED RINGERS 1,000 ML 30 ML IV CONT ×2 (06:15→10:14)
[2023-02-11] MEDS: ACETAMINOPHEN 500 MG TABLET 1000 MG PO (06:30)
[2023-02-11] MEDS: KETOROLAC 15 MG/ML VIAL (*BKC) IV PUSH (06:31)
--- NOTE | 2023-02-11 07:12 | WPDANESEPPF ---
Anes - Initial Pre Proc Eval Procedure: Operation Date: 02/11/23 07:30 Proposed Procedures p Robotic Laparoscopic Bilateral Inguinal Hernia Repair with Mesh - Han Quintero MD Date/Time: 02/11/23 07:12 Surgeon: Han Quintero MD Pre Op Diagnosis: bilateral inguinal hernias Patient Data Age: 63 Gender: M Height: 1.85 m Weight: 90.5 kg Allergies Allergy/AdvReac Type Severity Reaction Status Date / Time No Known Allergies Allergy Verified 02/11/23 06:36 Home Medications Medication Instructions Recorded Confirmed Type acetaminophen 650 mg 1,300 mg PO DAILY PRN Pain 02/24/22 02/11/23 History tablet,extended release (Tylenol Arthritis Pain) glucosamine-chondroitin 250 mg-200 1 tablet PO DAILY 02/24/22 02/11/23 History mg tablet (Osteo Bi-Flex) multivitamin 1 tablet PO DAILY 02/24/22 02/11/23 History niacin 50 mg tablet 50 mg PO BID 02/24/22 02/11/23 History fluoxetine 20 mg capsule 20 mg PO QAM #90 caps 10/08/22 02/11/23 Rx atorvastatin 40 mg tablet 40 mg PO DAILY #90 tabs 12/21/22 02/11/23 Rx doxepin 50 mg capsule 50 mg PO QHS #90 caps 12/21/22 02/11/23 Rx lisinopril 20 1 tablet PO HS #90 tabs 12/21/22 02/11/23 Rx mg-hydrochlorothiazide 25 mg tablet zolpidem 10 mg tablet 10 mg PO HS #180 tabs 12/21/22 02/11/23 Rx Patient hx anesthesia problems: none Family hx anesthesia problems: none Results Review: All pre-operative results and documents have been reviewed as part of the pre-operative evaluation. 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 Calzada History of tonsillectomy Family History Family History Mother Diabetes mellitus Depression Hypertension Father Hypertension Family history of elevated blood lipids Family history of cardiovascular disease Social History Social History Smoking packs per day: 1 Smoking cigarettes per day: 20.0 Years smoked: 15 Smoking pack-years: 15.00 Smoking status: Former smoker Tobacco type: smokeless tobacco Smokeless tobacco user: chewing tobacco Second hand tobacco smoke exposure: No Smoking end date: 03/14/98 Additional smoking assessment comments: Chewing tobacco- 20 years Alcohol intake: never Substance use: never Substance use type: does not use Living arrangements: with family Occupation/Education: retired Spiritual care concerns: No Anes - Eval Final PreProcedure Day of Procedure 02/11/23 07:12 Patient weight: overweight Heart: regular rate and rhythm Lungs: clear to auscultation Airway: Mallampati scale class II Neurological: alert and oriented Last oral intake: >/= 8 hours ASA classification: III Emergent: no Anesthetic plan: proceed Anesthesia type and monitoring: general ETT and standard monitoring Results Review: All pre-operative results and documents have been reviewed as part of the pre-operative evaluation. Informed Consent: The patient's anesthetic plan and its attendant risks and benefits were discussed with the patient/family/POA. Questions were solicited and answers provided to the satisfaction of the patient/family/POA.
--- NOTE | 2023-02-11 07:14 | WPDHPUPDATE1 ---
History and Physical Update Update Date/Time: 02/11/23 07:14 History and Physical has been reviewed, including an updated exam of the patient. There are NO changes in the patient's condition. Risks, benefits, and alternatives have been discussed and questions answered. Patient agrees to proceed with procedure.
[2023-02-11] MEDS: ceFAZolin 2 GM/D5W 50 ML 2 GM/50 ML BAG IVPB (07:30)
[2023-02-11] MEDS: BUPIVACAINE/EPINEPHRINE 0.5% 50 ML VIAL INFILTRATE (08:09)
--- NOTE | 2023-02-11 10:18 | W.PM.PROC2 ---
Procedure Note - Detailed Date of Procedure 02/11/23 Pre-op Diagnosis bilateral inguinal hernias Post-op Diagnosis Same Procedure Performed Robotic laparoscopic repair bilateral inguinal hernias with mesh Surgeon Han Quintero MD Hand Lacer Jovan CAO Anesthesia General and Local (0.5% Marcaine with epinephrine) Indications Patient began noticing some right groin pain while riding his bicycle last August. He saw his primary care provider who was able to palpate a right inguinal hernia. I saw him in the office last summer and found that he had not only a right inguinal hernia but also a left inguinal hernia. After discussion, he is taken to surgery now for laparoscopic repair of bilateral inguinal hernias using the de Lolita robot. Findings Patient had an indirect hernia on the right side. The left side had both an indirect and a direct hernia. Description of Procedure Patient was taken to surgery and induced into general anesthesia. The abdomen is prepped and draped. Local anesthesia was infiltrated in the left upper abdomen. Incision was made in the varies needle was introduced into the abdominal cavity. Saline drop technique was used to check that the varies needle had an intraperitoneal location. After adequate insufflation, the varies needle was removed and a 5 mm applied Medical optical trocar was then placed in the left upper abdomen. With the scope in this location, the 1st human resources office assistant placed the right-sided port. Prior to placement of each of the ports, local was infiltrated into the skin and the abdominal wall. Once the right-sided port was placed, local was infiltrated over the midline trocar. Incision was made and another 8 mm trocar was placed here. Finally the 5 mm port on the left side was removed and an 8 mm robotic trocar was placed there. The robot was brought into the field and the camera was docked. Camera was also targeted. Then the operating ports were docked and introduced on the right and left side. Patient was in Trendelenburg. I started on the right side which was the more symptomatic. A peritoneal flap was taken down over the inguinal area. Dissection was carried out medially to Donald's ligament and the pubis. Also medially we dissected beyond the midline. Peritoneal flap was then continued laterally trying to leave all the fatty tissue on the flap attached to the abdominal wall. Finally we went to the area of the inguinal hernia. Some fatty tissue was reduced from the hernia and then the spermatic cord and vasculature to the right testicle was carefully dissected off the peritoneum and the hernia was completely reduced. Cautery was used for hemostasis and very little bleeding occurred. The peritoneum was then further dissected so there was over 4 cm of abdominal wall posterior to the lower margin of the hernia defect for mesh placement. When the right side was dissected, I then turned my attention to the left side. Similarly a peritoneal flap was created. Medially the flap was dissected down to the pubis and Donald's ligament was exposed. I dissected posterior to Donald's ligament a couple of cm. We connected the retro peritoneal dissection from the left side with that of the right side. I then continued the dissection laterally and till the flap was continued well below the pectinate line. I then dissected the flap in the area of the indirect hernia. There was some fatty tissue in the inguinal canal. This was carefully reduced from the hernia defect. I then also dissected some additional fatty tissue as well as the peritoneum away from the vas deferens and the vasculature to the left testicle. The flap was dissected so it was well away from the cord structures and there was at least 4 cm available for mesh to lie below the indirect hernia defect. I then turned my attention to the direct hernia defect. This seemed to be more anterior. I dissected the fatty tissue and reduced this from the hernia defect. T
[2023-02-11] MEDS: fentaNYL CITRATE INJ (*CRX) 100 MCG/2 ML VIAL 25 MCG IV PUSH ×4 (10:48→11:03)
[2023-02-11] MEDS: oxyCODONE HCL (*CRX) 5 MG TAB IR PO (11:24)
== END 2023-02-11 12:39 | disposition home or self-care (01) ==
PROVIDERS: PCP Emergency Medicine; Visit Provider Surgery
PROC: 8E0Y4CZ Robotic Assisted Procedure of Lower Extremity, Percutaneous Endoscopic Approach (ICD-10-PCS; CPT 49650; principal; 2023-02-11 07:30)
DX: K40.20 Bilateral inguinal hernia, without obstruction or gangrene, not specified as recurrent (principal); F17.220 Nicotine dependence, chewing tobacco, uncomplicated; Z82.49 Family history of ischemic heart disease and other diseases of the circulatory system
CPT/HCPCS: 49650; S2900; A9270; C1781; J0690; J1100; J1170; J1885; J2250; J2405; J2704; J3010; J7030; J7120

== ENCOUNTER → 2023-02-28 08:50 | Outpatient (CLI) | payer OTHER, SELFPAY ==
--- NOTE | ~2023-02-28 | US_ITS ---
US soft tissue groin LT 02/28/2023 09:18 Indication: Bilateral inguinal hernia. Status post left hernia repair on 02/11/2023. Procedure: High-resolution Limited ultrasound of the left groin Comparison: No prior studies for comparison. Findings: There is a complex fluid collection in the left groin measuring 2.6 x 2.6 x 2.5 cm. No inte rnal vascularity. Impression: 1: Complex fluid collection left groin corresponding to palpable abnormality measuring 2.6 cm maximum dimension, most likely postoperative hematoma. Recommend follow-up ultrasound as clinically warrante d. Reviewed, dictated and finalized at location [facility]. [facility] Impression: 1: Complex fluid collection left groin corresponding to palpable abnormality me asuring 2.6 cm maximum dimension, most likely postoperative hematoma. Recommend follow-up ultrasound as clinically warranted.
== END ==
PROVIDERS: PCP Emergency Medicine; Visit Provider Surgery
DX: K40.20 Bilateral inguinal hernia, without obstruction or gangrene, not specified as recurrent (principal)
CPT/HCPCS: 76882

== ENCOUNTER 2023-06-22 10:16 | Outpatient (CLI) | payer OTHER, SELFPAY ==
[2023-06-22 13:01] LABS: Basophils Absolute Auto 0.1 K/mm3 (0.0-0.1); Basophils Percent Auto 0.7 % (0.2-1.2); Eosinophils Absolute Auto 0.1 K/mm3 (0-0.3); Eosinophils Percent Auto 1.6 % (0-4.4); Hematocrit 45.5 % (42.0-52.0); Hemoglobin 14.8 g/dL (14.0-18.0); Immature Granulocyte Absolute 0.02 K/mm3 (0.00-0.031); Immature Granulocyte Percent A 0.3 % (0-0.5); Lymphocytes Percent Auto 36.1 % (18.3-44.2); Mean Corpuscular HGB Conc 32.5 g/dl (32-36); Mean Corpuscular Hemoglobin 30.9 pg (26-34); Mean Platelet Volume 9.3 fl (7.4-10.4); Monocytes Absolute Auto 0.7 K/mm3 (0.1-0.6); Monocytes Percent Auto 9.7 % (2.6-8.5); Neutrophils Absolute Auto 3.6 K/mm3 (1.3-6.7); Neutrophils Percent Auto 51.6 % (45.5-73.1); Platelet Count Result 285 k/mm3 (150-375); Red Blood Count 4.79 M/mm3 (4.6-6.20); Red Cell Distribution Width 12.9 % (11.5-14.5); White Blood Count 6.9 K/mm3 (4.5-10.0)
[2023-06-22 13:19] LABS: Alanine Aminotransferase 33 U/L (6-50); Albumin Level 4.5 g/dL (3.5-5.1); Alkaline Phosphatase 78 U/L (38-126); Anion Gap 5 mmol/L (4-12); Aspartate Amino Transferase 65 U/L (17-59); Bilirubin,Total 0.6 mg/dL (0.2-1.3); Blood Urea Nitrogen 22 mg/dL (9-20); Calcium 9.8 mg/dL (8.4-10.2); Carbon Dioxide 28 mmol/L (22-30); Chloride 106 mmol/L (98-107); Cholesterol 191 mg/dL (0-200); Estimated Glomerular Filt Rate > 60; Glucose 97 mg/dL (65-110); HDL Direct 54 mg/dL; Potassium 4.4 mmol/L (3.4-5.0); Sodium 139 mmol/L (137-145); Triglycerides 64 mg/dL (<150)
[2023-06-22 13:36] LABS: LDL Cholesterol Direct 110 mg/dL
[2023-06-22 18:56] LABS: Hemoglobin A1C 5.5 % (<5.7)
== END 2023-06-22 10:17 | disposition home or self-care (01) ==
LOC: ANHGOSHLAB 10:17
PROVIDERS: PCP Emergency Medicine; Visit Provider Emergency Medicine
DX: E78.2 Mixed hyperlipidemia (principal); I10 Essential (primary) hypertension; R73.03 Prediabetes
CPT/HCPCS: 36415; 80053; 80061; 83036; 85025

== ENCOUNTER 2023-06-22 10:23 | Outpatient (CLI) | payer OTHER, SELFPAY ==
--- NOTE | ~2023-06-22 | XR_ITS ---
Left Shoulder Technique: AP and axillary views were obtained. Clinical History: Pain Findings: No fracture or dislocation is seen. Osseous alignment is anatomic. The glenohumeral and acr omioclavicular joint spaces are preserved. Soft tissues are unremarkable. Impression: Unremarkable left shoulder radiographs. Reviewed, dictated and finalized at [facility]. Impression: Unremarkable left shoulder radiographs.
--- NOTE | ~2023-06-22 | XR_ITS ---
Right Shoulder Technique: AP and axillary views were obtained. Clinical History: Pain Findings: No fracture or dislocation is seen. Osseous alignment is anatomic. The glenohumeral and acr omioclavicular joint spaces are preserved. Soft tissues are unremarkable. Impression: Unremarkable right shoulder radiographs. Reviewed, dictated and finalized at [facility]. Impression: Unremarkable right shoulder radiographs.
== END 2023-06-22 10:24 ==
PROVIDERS: PCP Emergency Medicine; Visit Provider Emergency Medicine
DX: M25.511 Pain in right shoulder (principal); M25.512 Pain in left shoulder
CPT/HCPCS: 73030

== ENCOUNTER 2023-07-16 13:52 | Emergency (ER) | payer OTHER, SELFPAY ==
--- NOTE | 2023-07-16 13:58 | ED.WOUNDLAC ---
HPI - Wound/Laceration General Chief Complaint: Wound/Laceration Stated Complaint: R FINGER LACERATION Time Seen by Provider: 07/16/23 14:06 Source: patient and RN notes reviewed Mode of arrival: ambulatory Limitations: no limitations History of Present Illness HPI narrative: 63-year-old male presents concern for laceration to the distal 3rd digit of the right hand.. Reports prior to arrival he lacerated on a lawnmower blade. He reports he is up-to-date on his tetanus vaccination he denies decreased strength, sensation, range of motion in the digit Related Data Home Medications Medication Instructions Recorded Confirmed acetaminophen 650 mg 1,300 mg PO DAILY PRN Pain 02/24/22 07/16/23 tablet,extended release (Tylenol Arthritis Pain) glucosamine-chondroitin 250 mg-200 1 tablet PO DAILY 02/24/22 07/16/23 mg tablet (Osteo Bi-Flex) multivitamin 1 tablet PO DAILY 02/24/22 07/16/23 niacin 50 mg tablet 50 mg PO BID 02/24/22 07/16/23 Allergies Allergy/AdvReac Type Severity Reaction Status Date / Time No Known Allergies Allergy Verified 07/16/23 14:02 Review of Systems Review of Systems: CONSTITUTIONAL: Denies malaise, chills, sweats, or fever. 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00 Smoking status: Former smoker Tobacco type: smokeless tobacco Smokeless tobacco user: chewing tobacco Second hand tobacco smoke exposure: No Smoking end date: 03/14/98 Additional smoking assessment comments: Chewing tobacco- 20 years Alcohol intake: never Substance use: never Substance use type: does not use Do You Feel Safe in your Home?: Yes Lack of Transportation: No Lack of Food: Never True Current Housing: I Have Housing Concerned About Future Housing: Decline to Answer Difficulty Paying Gas/Electric Bills: Decline to Answer Difficulty Paying for Meds: Decline to Answer Currently Unemployed: Decline to Answer Education: High School Diploma/GED Difficulty w/ Childcare or Family Care: Decline to Answer Living arrangements: with family Occupation/Education: retired Spiritual care concerns: No Comments At time of signature, agree with nursing past medical, surgical, social and family history. There is no relevant family history pertinent to the presenting complaint Exam Narrative: GENERAL: Well-appearing, well-nourished, and in no acute distress. HEAD: Normocephalic EYES: PERRLA, conjunctivae clear NECK: Supple. CHEST: Speaks in full sentences. No respiratory distress. HEART: Regular rate and rhythm. Normal and equal peripheral pulses. EXTREMITIES: 3rd digit of right hand has grossly normal strength and sensation. 5/5 strength with digit flexion, extension. Range of motion jacquelyn
[2023-07-16 14:07] VITALS: BP 134/100; PULSE 76; RESP 20; TEMP 37; O2SAT 96
== END 2023-07-16 15:00 | disposition home or self-care (01) ==
PROVIDERS: Emergency Provider Nurse Practitioner; PCP Emergency Medicine
DX: S61.212A Laceration without foreign body of right middle finger without damage to nail, initial encounter (principal); W28.XXXA Contact with powered lawn mower, initial encounter; Z87.891 Personal history of nicotine dependence; M17.11 Unilateral primary osteoarthritis, right knee; Z96.652 Presence of left artificial knee joint
CPT/HCPCS: 12001; 99212; G0463

== ENCOUNTER 2024-03-16 12:38 | Outpatient (CLI) | payer MEDICARE, OTHER, SELFPAY ==
[2024-03-16 15:19] LABS: Hematocrit 42.3 % (42.0-52.0); Hemoglobin 14.6 g/dL (14.0-18.0); Mean Corpuscular HGB Conc 34.5 g/dl (32-36); Mean Corpuscular Hemoglobin 31.6 pg (26-34); Mean Corpuscular Volume 91.6 fl (80-100); Mean Platelet Volume 9.1 fl (7.4-10.4); Platelet Count Result 275 k/mm3 (150-375); Red Blood Count 4.62 M/mm3 (4.6-6.20); Red Cell Distribution Width 12.3 % (11.5-14.5); White Blood Count 8.1 K/mm3 (4.5-10.0)
[2024-03-16 15:21] LABS: Alanine Aminotransferase 30 U/L (6-50); Albumin Level 4.3 g/dL (3.5-5.1); Alkaline Phosphatase 77 U/L (38-126); Anion Gap 2 mmol/L (4-12); Aspartate Amino Transferase 41 U/L (17-59); Bilirubin,Total 0.5 mg/dL (0.2-1.3); Blood Urea Nitrogen 16 mg/dL (9-20); Calcium 9.7 mg/dL (8.4-10.2); Carbon Dioxide 29 mmol/L (22-30); Chloride 107 mmol/L (98-107); Cholesterol 166 mg/dL (0-200); Estimated Glomerular Filt Rate > 60; Glucose 97 mg/dL (65-110); HDL Direct 48 mg/dL; Potassium 4.3 mmol/L (3.4-5.0); Sodium 138 mmol/L (137-145); Triglycerides 92 mg/dL (<150)
[2024-03-16 15:32] LABS: LDL Cholesterol Direct 83 mg/dL
[2024-03-16 15:51] LABS: Prostate Specific Antigen 0.5 ng/mL (< OR = 4.0); Thyroid Stimulating Hormone 0.928 uIU/mL (0.465-4.680)
[2024-03-16 17:57] LABS: Hemoglobin A1C 5.5 % (<5.7)
== END 2024-03-16 12:39 | disposition home or self-care (01) ==
LOC: ANHGOSHLAB 12:40
PROVIDERS: PCP Internal Medicine; Visit Provider Family Medicine
DX: E78.2 Mixed hyperlipidemia (principal); I10 Essential (primary) hypertension; R73.03 Prediabetes; Z12.5 Encounter for screening for malignant neoplasm of prostate; Z79.899 Other long term (current) drug therapy
CPT/HCPCS: 36415; 80053; 80061; 83036; 84153; 84443; 85027; G0103

== ENCOUNTER 2024-09-17 09:50 | Outpatient (CLI) | payer MEDICARE, SELFPAY ==
--- NOTE | ~2024-09-17 | CT_ITS ---
Noncontrast CT scan left shoulder CLINICAL HISTORY: Preoperative planning TECHNIQUE: Axial noncontrast imaging of the left shoulder was performed. Sagittal and coronal reforma tted images were constructed. Dose reduction technique was used on this scan by utilizing automated e xposure control and iterative reconstruction technique. The dose-length product (DLP) was 228.00 mGy- cm. Findings: No acute fracture or dislocation seen. Humeral head is high riding, suggestive of underlyin g full-thickness rotator cuff tear. There is early mild acetabular is elevation of the acromion. AC j oint otherwise intact. Glenohumeral joint also intact otherwise. Probable small glenohumeral joint ef fusion. No florinda muscle atrophy identified. No gross soft tissue mass or fluid collection seen. IMPRESSION: High riding humeral head suggests underlying rotator cuff tear. No fracture or dislocation. Reviewed, dictated and finalized at [facility].
--- NOTE | 2024-09-17 10:39 | ECG_ITS ---
Test Date: 2024-09-17 10:48:40 Measurements Intervals [place] Rate: 65 P: 6 MO: 192 QRS: 3 QRSD: 97 T: 6 QT: 408 QTc: 427 Interpretive Statements SINUS RHYTHM No previous ECG available for comparison Electronically Signed On 09-17-2024 22:18:02 CDT by Jeferson Santos M.D.
[2024-09-17 11:28] LABS: Hematocrit 40.8 % (42.0-52.0); Hemoglobin 13.8 g/dL (14.0-18.0)
[2024-09-17 11:40] LABS: Albumin Level 4.1 g/dL (3.5-5.1); Estimated Glomerular Filt Rate > 60; Glucose 111 mg/dL (65-110)
[2024-09-17 11:48] LABS: Hemoglobin A1C 5.6 % (<5.7)
== END 2024-09-17 09:51 | disposition home or self-care (01) ==
PROVIDERS: PCP Nurse Practitioner; Visit Provider Orthopaedic Surgery
DX: M89.8X2 Other specified disorders of bone, upper arm (principal); M19.011 Primary osteoarthritis, right shoulder; M19.012 Primary osteoarthritis, left shoulder; I10 Essential (primary) hypertension; E78.2 Mixed hyperlipidemia; R73.03 Prediabetes; Z79.899 Other long term (current) drug therapy
CPT/HCPCS: 73200; 80307; 82040; 82565; 82947; 83036; 85014; 85018; 93005

== ENCOUNTER 2024-11-22 08:44 | Outpatient (CLI) | payer MEDICARE, SELFPAY | END 2024-11-22 08:45 | disposition home or self-care (01) | PROVIDERS: PCP Nurse Practitioner; Visit Provider Orthopaedic Surgery | DX: Z79.899 Other long term (current) drug therapy (principal) | CPT/HCPCS: 80307 ==

== ENCOUNTER 2025-01-23 08:02 | Outpatient (CLI) | payer MEDICARE, SELFPAY ==
[2025-01-23 08:54] LABS: Hematocrit 41.9 % (42.0-52.0); Hemoglobin 13.8 g/dL (14.0-18.0); Immature Granulocyte Percent A 0.3 % (0-0.5); Lymphocytes Absolute Auto 2.06 K/mm3 (0.9-3.2); Mean Corpuscular HGB Conc 32.9 g/dl (32-36); Mean Corpuscular Hemoglobin 30.3 pg (26-34); Mean Corpuscular Volume 91.9 fl (80-100); Nucleated Red Blood Cells Absolute Auto 0.000 K/mm3 (0.0-0.012); Nucleated Red Blood Cells Perc 0.0 % (0.0-0.2); Platelet Count Result 258 k/mm3 (150-375); Red Blood Count 4.56 M/mm3 (4.6-6.20); White Blood Count 6.1 K/mm3 (4.5-10.0)
[2025-01-23 09:16] LABS: Anion Gap 6 mmol/L (4-12); Blood Urea Nitrogen 19 mg/dL (9-20); Calcium 9.6 mg/dL (8.4-10.2); Carbon Dioxide 28 mmol/L (22-30); Chloride 105 mmol/L (98-107); Estimated Glomerular Filt Rate > 60; Glucose 107 mg/dL (65-110); Potassium 4.1 mmol/L (3.4-5.0); Sodium 139 mmol/L (137-145)
[2025-01-23 10:04] LABS: MRSA (PCR) NOT DETECTED (NOT DETECTE)
== END 2025-01-23 08:03 | disposition home or self-care (01) ==
LOC: ANHSURGERY 08:05
PROVIDERS: Anesthesiology; PCP Nurse Practitioner; Visit Provider Orthopaedic Surgery
DX: M75.102 Unspecified rotator cuff tear or rupture of left shoulder, not specified as traumatic (principal); I10 Essential (primary) hypertension
CPT/HCPCS: 36415; 80048; 85025; 87641

== ENCOUNTER 2025-02-11 01:11 | Day surgery (SDC) | payer MEDICARE, SELFPAY ==
--- NOTE | 2025-01-23 07:59 | PC.NURSE ---
[facility] has started construction of its new state of the art ER which will open Spring 2026. With this, we anticipate parking may be a challenge for some our surgical patients and families. Parking spaces are limited but are available for all Surgical, obstetrics, and ER patients sharing this lot. If you arrive and find you are having a hard time finding a parking space, please note that we understand the challenges, please drive around the hospital and park near Hospital Entrance 1. When you enter this entrance, you can ask a volunteer to direct or take you back to the surgical waiting area to check in. We appreciate everyone?s understanding of these expected challenges while we build for your future. Report to the Outpatient Waiting Room, entrance under the green pavilion located off [address], at time __10 AM on date __02/11/25 . Planned Procedure Time: __1200 NOON .? Time changes happen often and if your time is changed the preop area will call you the afternoon before. - You and your visitor will be asked to self-screen and do not enter if you have any COVID symptoms. Please call surgeon if you need to reschedule. - A mask is optional within the hospital at this time. Patients may have clear liquids (water, carbonated beverages, clear teas, apple juice) until 3 hours prior to surgery (9AM)with a maximum of 20 ounces. - No food from midnight until time of surgery and no smoking, or chewing tobacco (or any form of nicotine). No chewing gum, candy or mints. Take only the following medications with a SIP of water on the morning of surgery: ____FLUOXETINE DO NOT STOP ANY OF YOUR OTHER PRESCRIPTION MEDICATIONS PRIOR TO SURGERY EXCEPT THE FOLLOWING Hold all vitamins and supplements for 3 days per anesthesiologist.LAST DOSE02/07/25 Medications to discontinue per physician ___IBUPROFEN__HOLD 7 DAYS PRE OP PER DR RUIZ Date to take last dose__02/03/25 Please no make-up, nail greenlandic, hairspray, perfume, deodorant, or body powder the day of surgery.? No jewelry (including any body piercings) or valuables the day of surgery, leave them at home.? Please take a shower or bath the night before, or the morning of, surgery with an antibacterial soap.? Wear comfortable, loose fitting clothing.? Children are encouraged to wear pajamas. - Jewelry must be removed prior to entering the operating room.? Rings and piercings that are not removed may be cut off. - The hospital will not accept responsibility for valuables.? - Please leave all valuables, including medications, at home the day of surgery. If you are going home after surgery, a licensed pile driver must drive you home.? - NO public transportation without another adult if you receive anesthesia. - We recommend that an adult stay with you for 24 hours following discharge. - We also recommend that you do not drive, make important decision, drink alcoholic beverages, or take any drugs that were not prescribed by your health care provider for at least 24 hours after your discharge time. For Pediatric surgeries, we recommend two adults accompany the child home. Follow any additional instructions given to you from your surgeon. VERBAL AND WRITTEN instructions given to ___PATIENT__AND MARIANNE and asked if any additional questions and then verbalized understanding. Patient advised to call surgeon office or pre surgery nurse liaison [phone] if any additional questions.
[2025-01-23 08:09] VITALS: BMI 25.7
[2025-01-23 08:37] VITALS: BP 121/87; PULSE 74; RESP 18; TEMP 36.5; O2SAT 98
[2025-02-11] VITALS (17 sets, daily range): BP systolic 106–138; BP diastolic 63–87; PULSE 62–78; RESP 11–20; TEMP 36.1–36.8; O2SAT 92–100; BMI 25.6
--- NOTE | ~2025-02-11 | XR_ITS ---
EXAMINATION: XR shoulder LT min 2V, 02/11/2025 15:15 MEDIA SERVICES SPECIALIST HISTORY: POST-OP LEFT REVERSE TOTAL SHOULDER COMPARISON: No comparisons available. Findings: No acute fracture or malalignment. Arthroplasty intact Soft tissues unremarkable. Impression: No acute fracture or malalignment. Reviewed, dictated and finalized at location P. A SERVICES SPECIALIST Impression: No acute fracture or malalignment.
--- NOTE | 2025-02-11 08:16 | WPDHPUPDATE1 ---
History and Physical Update Update Date/Time: 02/11/25 08:16 History and Physical has been reviewed, including an updated exam of the patient. There are NO changes in the patient's condition. Risks, benefits, and alternatives have been discussed and questions answered. Patient agrees to proceed with procedure.
[2025-02-11] MEDS: ACETAMINOPHEN 500 MG TABLET 1000 MG PO (10:35)
[2025-02-11] MEDS: LACTATED RINGERS 1,000 ML 30 ML IV CONT ×2 (10:40→15:06)
[2025-02-11] MEDS: TRANEXAMIC ACID 1,000MG/ISO100 1,000 MG/100 ML BAG 200 MG IVPB (11:13)
--- NOTE | 2025-02-11 11:39 | WPDANESEPPF ---
Anes - Initial Pre Proc Eval Procedure: Operation Date: 02/11/25 12:00 Proposed Procedures p Left Reverse Total Shoulder Arthroplasty - Ok Douglas MD Date/Time: 02/11/25 11:39 Surgeon: Ok Douglas MD Pre Op Diagnosis: left rotator cuff arthropathy Patient Data Age: 65 Gender: M Height: 1.85 m Weight: 88.1 kg Last Vital Signs Temp 97.2 F L 02/11/25 10:00 Pulse 69 02/11/25 10:00 Resp 18 02/11/25 10:00 BP 127/87 02/11/25 10:00 Pulse Ox 98 02/11/25 10:00 O2 Del Method Room Air 02/11/25 10:00 Allergies Allergy/AdvReac Type Severity Reaction Status Date / Time No Known Allergies Allergy Verified 02/11/25 11:00 Home Medications ?Medication ?Instructions ?Recorded ?Confirmed ?Type acetaminophen 650 mg 1,300 mg PO DAILY PRN Pain 02/24/22 01/23/25 History tablet,extended release (Tylenol Arthritis Pain) glucosamine-chondroitin 250 mg-200 1 tablet PO DAILY 02/24/22 02/11/25 History mg tablet (Osteo Bi-Flex) multivitamin 1 tablet PO DAILY 02/24/22 02/11/25 History niacin 50 mg tablet 50 mg PO BID 02/24/22 02/11/25 History atorvastatin 40 mg tablet 40 mg PO DAILY #100 tabs 09/26/24 02/11/25 Rx lisinopril 20 1 tablet PO HS #100 tabs 09/26/24 02/11/25 Rx mg-hydrochlorothiazide 25 mg tablet doxepin 50 mg capsule 50 mg PO QHS #90 caps 12/24/24 02/11/25 Rx zolpidem 10 mg tablet 10 mg PO HS #90 tabs 12/27/24 02/11/25 Rx ibuprofen 200 mg tablet (Advil) 600 mg PO PRN PAIN 01/23/25 01/23/25 History fluoxetine 20 mg capsule 20 mg PO QAM #90 caps 01/28/25 02/11/25 Rx Patient hx anesthesia problems: none Family hx anesthesia problems: none Results Review: All pre-operative results and documents have been reviewed as part of the pre-operative evaluation. [facility] Past Medical History Medical History Arthritis of right knee History of prosthetic unicompartmental arthroplasty of left knee Bilateral chronic knee pain Rotator cuff tendonitis Patellar bursitis Bilateral shoulder region arthritis Shoulder pain, bilateral Surgical History Surgical History Hx of inguinal hernia repair Robotic laparoscopic repair bilateral inguinal hernias with mesh 02/11/23 [place] History of tonsillectomy History of partial knee replacement left knee 03/02/22 Family History Family History Mother Diabetes mellitus Depression Hypertension Father Hypertension Family history of elevated blood lipids Family history of cardiovascular disease Social History Social History Smoking packs per day: 1 Smoking cigarettes per day: 20.0 Years smoked: 15 Smoking pack-years: 15.00 Smoking status: Former smoker Tobacco type: smokeless tobacco Smokeless tobacco user: chewing tobacco Second hand tobacco smoke exposure: No Smoking end date: 03/14/98 Additional smoking assessment comments: Chewing tobacco- 20 years Alcohol intake: never Substance use: never Substance use type: does not use Lack of Transportation: No Lack of Food: Never True Current Housing: I Have Housing Concerned About Future Housing: Decline to Answer Difficulty Paying Gas/Electric Bills: Decline to Answer Difficulty Paying for Meds: Decline to Answer Currently Unemployed: Decline to Answer Education: High School Diploma/GED Difficulty w/ Childcare or Family Care: Decline to Answer Living arrangements: with family Occupation/Education: retired Spiritual care concerns: No Anes - Eval Final PreProcedure Day of Procedure 02/11/25 11:39 Patient weight: overweight Lungs: normal air movement Airway: Mallampati scale class II Neurological: alert and oriented Last oral intake: >/= 8 hours ASA classification: II Emergent: no Anesthetic plan: proceed Anesthesia type and monitoring: general ETT and standard monitoring Results Review: All pre-operative results and documents have been reviewed as part of the pre-operative evaluation. HTN, hyperlipidemia, active w riding his bike reg, no cp or sob. Informed Consent: The patient's anesthetic plan and its attendant risks and benefits were discussed with the patient/family/POA. Questions were solicited and answers provided to the satisfaction of the patient/family/POA.
[2025-02-11] MEDS: ceFAZolin 2 GM in SODIUM CHLORIDE 0.9% IV 50 ML 100 ML IVPB ×2 (12:35→20:48)
[2025-02-11] MEDS: SODIUM CHLORIDE 0.9% IV 37.7 ML, MORPHINE SULFATE INJ (*CRX) 2 MG, ROPivacaine HCL 1% 2... INFILTRATE (12:56)
[2025-02-11] MEDS: VANCOMYCIN HCL 1,000 MG VIAL 1000 MG TOPICAL (14:12)
--- NOTE | 2025-02-11 14:51 | P.OP_ITS ---
Procedure Note - Detailed Date of Procedure 02/11/25 Pre-op Diagnosis Left shoulder rotator cuff arthropathy Post-op Diagnosis Same Procedure Performed Reverse total shoulder arthroplasty, left Surgeon Ok Douglas MD Pathology Lab Technician Ely Guadalupe PA-C Anesthesia General Findings Massive chronic rotator cuff tear with severe atrophy noted. The subscapularis was deficient. The entire supra and infraspinatus were absent. The teres minor was present. Significant proximal humeral changes consistent with chronic articulation at the acromion. Excellent bone quality. No glenoid wear. Description of Procedure Preoperative antibiotics were given. The patient was transferred to the operating room and a general anesthetic was administered. The beach chair position was used at 45 degrees. All bony prominences were padded. The head was carefully stabilized on the [facility] cloth bale header. A sterile prep and drape was performed in the usual manner with ChloraPrep. A longitudinal incision was created at the anterior shoulder just lateral to the deltopectoral interval. Careful dissection was performed to expose the interval and protect the cephalic vein. The vein was retracted medially. The upper border of the pectoralis was released. Anterior circumflex vessel branches were suture ligated. The biceps was tenodesed. A subscapularis tenotomy was performed on the limited remaining subscapularis tissue. The inferior capsule was released, exposing the humeral head. There were no significant osteophytes. Care was taken to stay on bone to protect the axillary nerve. The neck anteversion and inclination were carefully assessed. Version was between 30?. The anatomic head cut was taken with the oscillating saw. The cut protector was placed, and attention was turned to the glenoid. Retractors were placed. Releases were carried out for exposure. The subscapularis was mobilized, the inferior capsule and long head of triceps released, and the superior and middle glenohumeral ligaments released as well. Labral tissue was resected as needed. The shoulder remained tight, until the posterior capsule was released. Version and inclination did not require correction according to preoperative templating. The sizing template was used to assess the baseplate position low on the glenoid. A guide pin was placed. Minimal reaming was used to accomplish a flat surface without violating the subchondral bone. The boss was drilled, and the real component was impacted into position. The central compression screw was placed. Supplemental locking screws were placed superiorly, and inferiorly. The glenosphere was impacted into the taper. Attention was turned to the humerus. The guide pin was placed, central drilling performed, and the broach trial inserted. The proximal humerus was reamed for the inset component. The real humeral stem, tray, and insert were impacted into position. The shoulder was copiously irrigated periodically with pulsatile lavage. The shoulder was reduced and stability confirmed. 1 gram of Vancomycin powder was placed in the joint. The biceps tenodesis was incorporated with the pectoralis tendon repair. The remaining tissue was closed with 2-0 Vicryl, 3-0 Stratafix and 4-0 Stratafix, and steri-strips. A sterile silver occlusive dressing and shoulder immobilizer were placed. The patient was transferred to the recovery room. Implants Shoulder [employer] reverse TSA size 1 stem. +0 polyethylene insert. Standard baseplate. 36 + 6 mm glenosphere. Estimated Blood Loss 350 Drains No Pathology None sent Complications No immediate complications Condition Stable Disposition PACU [facility] Billing Surgery - Charge Forward: Surgery Billing
[2025-02-11] MEDS: fentaNYL CITRATE INJ (*CRX) 100 MCG/2 ML VIAL 25 MCG IV PUSH ×8 (15:20→15:53)
[2025-02-11] MEDS: HYDROmorphone HCL INJ (*CRX) 1 MG/ML SYR 0.2 MG IV PUSH ×5 (16:02→16:25)
[2025-02-11] MEDS: diazePAM INJ (*CRX) 10 MG/2 ML SYRINGE 2 MG IV PUSH (16:33)
[2025-02-11] MEDS: oxyCODONE HCL (*CRX) 5 MG TAB IR PO (17:00)
--- NOTE | 2025-02-11 17:44 | ADMGEN ---
This patient, Roberto Carlos Hurley, was admitted to 2 Medical Room 240-. Patient/family oriented to hospital policies and general routines including ID bracelet, bed and alarms, visiting hours, pain management, procedures, bathroom and other care routines, personal items, smoking policy, room service/diet, and visiting hours. Information on how to activate the Rapid Response Team has been discussed. Patient/Family are encouraged to report perceived risks to care and to ask questions if they do not understand what they are told or what they should do.
[2025-02-11] MEDS: SENNA/DOCUSATE SODIUM TABLET 2 TAB PO (18:14)
[2025-02-11] MEDS: MELOXICAM 7.5 MG TABLET PO (18:14)
[2025-02-11] MEDS: ACETAMINOPHEN 325 MG TABLET 650 MG PO ×2 (18:14→23:02)
[2025-02-11] MEDS: FAMOTIDINE 20 MG TABLET PO (20:47)
[2025-02-11] MEDS: ASPIRIN 81 MG ENTERIC TABLET PO (20:47)
[2025-02-11] MEDS: oxyCODONE/ACETAMINOPHEN (*CRX) 5-325 MG TABLET 1 TABLET PO (20:59)
[2025-02-11] MEDS: ONDANSETRON INJ 4 MG/2 ML VIAL IV PUSH (21:37)
[2025-02-11] MEDS: HYDROmorphone HCL INJ (*CRX) 1 MG/ML SYR 0.5 MG IV PUSH (21:41)
[2025-02-12] MEDS: oxyCODONE/ACETAMINOPHEN (*CRX) 10-325 MG TABLET 1 TAB PO ×2 (01:20→07:57)
[2025-02-12 04:15] VITALS: BP 119/68; PULSE 71; RESP 18; TEMP 36.9; O2SAT 97
[2025-02-12 04:47] LABS: Hematocrit 35.2 % (42.0-52.0); Hemoglobin 11.7 g/dL (14.0-18.0); Immature Granulocyte Percent A 0.5 % (0-0.5); Lymphocytes Absolute Auto 1.38 K/mm3 (0.9-3.2); Mean Corpuscular HGB Conc 33.2 g/dl (32-36); Mean Corpuscular Hemoglobin 31.0 pg (26-34); Mean Corpuscular Volume 93.1 fl (80-100); Nucleated Red Blood Cells Absolute Auto 0.000 K/mm3 (0.0-0.012); Nucleated Red Blood Cells Perc 0.0 % (0.0-0.2); Platelet Count Result 235 k/mm3 (150-375); Red Blood Count 3.78 M/mm3 (4.6-6.20); White Blood Count 15.0 K/mm3 (4.5-10.0)
[2025-02-12 04:57] LABS: Anion Gap 2 mmol/L (4-12); Blood Urea Nitrogen 22 mg/dL (9-20); Calcium 8.6 mg/dL (8.4-10.2); Carbon Dioxide 27 mmol/L (22-30); Chloride 105 mmol/L (98-107); Estimated CRCL calculation 82 ml/min; Estimated Glomerular Filt Rate > 60; Glucose 123 mg/dL (65-110); Potassium 3.9 mmol/L (3.4-5.0); Sodium 134 mmol/L (137-145)
[2025-02-12] MEDS: ceFAZolin 2 GM in SODIUM CHLORIDE 0.9% IV 50 ML 100 ML IVPB ×2 (05:04→10:48)
[2025-02-12] MEDS: ACETAMINOPHEN 325 MG TABLET 650 MG PO ×2 (05:09→11:38)
[2025-02-12] MEDS: CYCLOBENZAPRINE HCL 5 MG TABLET PO (05:12)
[2025-02-12 07:59] VITALS: BP 130/64; PULSE 77; RESP 16; TEMP 36.7; O2SAT 99
[2025-02-12 08:00] VITALS: O2SAT 99
[2025-02-12] MEDS: ATORVASTATIN 40 MG TABLET PO (08:00)
[2025-02-12] MEDS: MELOXICAM 7.5 MG TABLET PO (08:00)
[2025-02-12] MEDS: ASPIRIN 81 MG ENTERIC TABLET PO (08:00)
[2025-02-12] MEDS: FAMOTIDINE 20 MG TABLET PO (08:00)
[2025-02-12] MEDS: SENNA/DOCUSATE SODIUM TABLET 2 TAB PO (08:00)
--- NOTE | 2025-02-12 10:38 | P.PNOP_ITS ---
Progress Note: A&P Assessment and Plan (1) Status post reverse total arthroplasty of left shoulder: Code(s): Z96.612 - Presence of left artificial shoulder joint Status: Acute Assessment and Plan: Postop day 1: Reverse total shoulder arthroplasty. Patient tolerated procedure well. No complications. Pain manageable with pain medication. No numbness or tingling. We had a lengthy discussion regarding postoperative wound care, limitations, expectations, and exercises. Patient shows good understanding. He has had initial physical therapy and is tolerating it well. DVT prophylaxis: 81 mg baby aspirin b.i.d. for 14 days. Pain medication: Percocet. Patient has followup appointment with Dr. Douglas in 2 weeks. Subjective Subjective Date/Time Seen: 02/12/25 10:38 Interval history: Resting comfortably in bed. Pain controlled. Wearing sling. No other complaints. Review of Systems Review of Systems: All systems reviewed & are unremarkable except as noted in HPI and below Exam Narrative: 65 y/o male. Resting comfortably in bed. Wearing sling. Dressing dry and intact with no drainage. Mild swelling. Mild ecchymosis. No erythema. No hematoma. Range of motion limited due to pain. Calf nontender. Neurologic status intact. No varicosities. Axillary nerve activates. Distal pulses palpable. Objective Data Vital Signs Vital Signs: Vital Signs - 24 hr 02/11/25 15:06 02/11/25 15:20 02/11/25 15:35 Temperature 97 F L Pulse Rate 62 74 71 Respiratory Rate 11 L 14 12 Blood Pressure 138/85 135/81 125/76 Pulse Oximetry 97 100 100 Oxygen Delivery Simple Face Mask Simple Face Mask Nasal Cannula Oxygen Flow Rate 10 10 2 02/11/25 15:50 02/11/25 16:05 02/11/25 16:20 Temperature Pulse Rate 73 77 77 Respiratory Rate 15 15 14 Blood Pressure 131/74 124/73 126/79 Pulse Oximetry 97 95 99 Oxygen Delivery Nasal Cannula Nasal Cannula Nasal Cannula Oxygen Flow Rate 2 2 2 02/11/25 16:35 02/11/25 16:50 02/11/25 17:05 Temperature Pulse Rate 74 78 71 Respiratory Rate 14 14 16 Blood Pressure 124/72 123/70 133/80 Pulse Oximetry 92 96 96 Oxygen Delivery Nasal Cannula Nasal Cannula Nasal Cannula Oxygen Flow Rate 2 2 2 02/11/25 17:20 02/11/25 17:31 12/01/25 17:46 Temperature 98.1 F 98.1 F Pulse Rate 72 72 72 Respiratory Rate 13 16 14 Blood Pressure 130/80 130/68 129/64 Pulse Oximetry 97 92 92 Oxygen Delivery Nasal Cannula Oxygen Flow Rate 2 02/11/25 18:27 02/11/25 18:52 02/11/25 19:45 Temperature 98.2 F 97.5 F L Pulse Rate 74 74 75 Respiratory Rate 16 16 18 Blood Pressure 134/66 108/63 Pulse Oximetry 93 93 95 Oxygen Delivery Room Air Oxygen Flow Rate 02/11/25 21:08 02/11/25 23:30 02/12/25 04:15 Temperature 97 F L 98.5 F Pulse Rate 77 71 Respiratory Rate 20 18 Blood Pressure 106/63 119/68 Pulse Oximetry 94 97 Oxygen Delivery Room Air Oxygen Flow Rate 02/12/25 07:45 02/12/25 07:59 02/12/25 08:00 Temperature 98.1 F Pulse Rate 77 Respiratory Rate 16 Blood Pressure 130/64 Pulse Oximetry 99 99 Oxygen Delivery Room Air Room Air Oxygen Flow Rate 02/12/25 08:10 Temperature Pulse Rate Respiratory Rate Blood Pressure Pulse Oximetry Oxygen Delivery Room Air Oxygen Flow Rate Intake/Output Intake/Output: Intake & Output 02/09/25 02/10/25 02/11/25 02/12/25 23:59 23:59 23:59 23:59 Intake Total 802 1110 Output Total 100 Balance 702 1110 Meds/Results Medications: Active Medications Generic Name Dose Route Start Last Admin Trade Name Freq PRN Reason Stop Dose Admin Acetaminophen 650 mg 02/11/25 17:31 02/12/25 05:09 Acetaminophen 325 Mg Tablet PO 650 mg Q6HR AMCRINA Administration Aspirin 81 mg 02/11/25 21:00 02/12/25 08:00 Aspirin 81 Mg Enteric Tablet PO 81 mg Q12HR MACRINA Administration Atorvastatin Calcium 40 mg 02/12/25 09:00 02/12/25 08:00 Atorvastatin 40 Mg Tablet PO 40 mg DAILY MACRINA Administration Cyclobenzaprine HCl 5 mg 02/11/25 17:31 02/12/25 05:12 Cyclobenzaprine Hcl 5 Mg Tablet PO 5 mg Q8H PRN Administration Spasms Diphenhydramine HCl 25 mg 02/11/25 17:31 Diphenhydramine Hcl Inj 50 Mg/Ml Vial IV PUSH Q6H PRN Itching Famotidine 20 mg 02/11/25 21:00 02/12/25 08:00 Famotidine 20 Mg Tablet PO 20 mg Q12HR MACRINA Administration Fluoxetine HCl 20 mg 02/12/25 09:00 02/12/25 08:00 Fluoxetine Hcl 20 Mg Capsule PO 20 mg QAM MACRINA Administration Hydrochlorothiazide 25 mg 02/11/25 21:00 02/11/25 20:47 Hydrochlorothiazide 25 Mg Tablet PO 25 mg HS [facility] Administration Hydromorphone HCl 1 mg 02/11/25 17:31 Hydromorphone Hcl Inj (*Crx) 1 Mg/Ml Syr IV PUSH Q2H PRN Breakthrough Pain Rated 7-10 or NPO Hydromorphone HCl 0.5 mg 02/11/25 17:31 02/11/25 21:41 Hydromorphone Hcl Inj (*Crx) 1 Mg/Ml Syr IV PUSH 0.5 mg Q2H PRN Administration Breakthrough Pain Rated 4-6 or NPO Cefazolin Sodium 2 gm/ Sodium 50 mls @ 100 mls/hr 02/11/25 21:00 02/12/25 05:04 Chloride IVPB 02/12/25 13:29 100 mls/hr Q8H [facility] Administration Lisinopril 20 mg 02/11/25 21:00 02/11/25 20:47 Lisinopril 20 Mg Tablet PO 20 mg HS [facility] Administration Meloxicam 7.5 mg 02/11/25 17:31 02/12/25 08:00 Meloxicam 7.5 Mg Tablet PO 7.5 mg BIDWM [facility] Administration Naloxone HCl 0.1 mg 02/11/25 17:31 Naloxone Hcl 0.4 Mg/Ml Vial IV PUSH Q2M PRN Opiate Reversal Ondansetron HCl 4 mg 02/11/25 17:31 02/11/25 21:37 Ondansetron Inj 4 Mg/2 Ml Vial IV PUSH 4 mg Q4H PRN Administration Nausea And Vomiting Oxycodone/Acetaminophen 1 tablet 02/11/25 17:31 02/11/25 20:59 Oxycodone/Acetaminophen (*Crx) 5-325 Mg Tablet PO 1 tablet Q4H PRN Administration Pain Rated 4-6 Oxycodone/Acetaminophen 1 tab 02/11/25 17:31 02/12/25 07:57 Oxycodone/Acetaminophen (*Crx) 10-325 Mg Tablet PO 1 tab Q6H PRN Administration Pain Rated 7-10 Polyethylene Glycol 17 gm 02/12/25 09:00 02/12/25 08:01 Polyethylene Glycol 3350 17 Gm Powd.Pack PO Not Given QAM MACRINA Senna/Docusate Sodium 2 tab 02/11/25 17:31 02/12/25 08:00 Senna/Docusate Sodium Tablet PO 2 tab BID MACRINA Administration Tramadol HCl 50 mg 02/11/25 17:31 Tramadol Hcl (*Crx) 50 Mg Tablet PO Q4H PRN Pain Rated 1-3 Zolpidem Tartrate 10 mg 02/11/25 17:31 Zolpidem Tartrate (*Crx) 5 Mg Tablet PO HS PRN Insomnia Radiology Results: ITS Impressions Shoulder X-Ray 02/11/25 15:30 Impression: No acute fracture or malalignment. Labs Labs: Laboratory Results - last 24 hr 02/11/25 02/12/25 10:43 04:07 WBC 15.0 H RBC 3.78 L Hgb 11.7 L Hct 35.2 L MCV 93.1 MCH 31.0 MCHC 33.2 RDW 12.3 Plt Count 235 MPV 8.9 Immature Gran % (Auto) 0.5 Neut % (Auto) 83.1 H Lymph % (Auto) 9.2 L [place] % (Auto) 7.0 Eos % (Auto) 0.0 Baso % (Auto) 0.2 Lymph # (Auto) 1.38 [place] # (Auto) 1.1 H Eos # (Auto) 0.0 Baso # (Auto) 0.0 Abs Immat Gran (auto) 0.08 H Absolute Neuts (auto) 12.5 H Absolute Nucleated RBC 0.000 Nucleated RBC % 0.0 Sodium 134 L Potassium 3.9 Chloride 105 Carbon Dioxide 27 Anion Gap 2 L BUN 22 H Creatinine 0.88 Estim Creat Clear Calc 82 Estimated GFR > 60 Glucose 123 H Calcium 8.6 Blood Type O Positive Antibody Screen Negative
[2025-02-12] MEDS: oxyCODONE/ACETAMINOPHEN (*CRX) 5-325 MG TABLET 1 TABLET PO (11:38)
== END 2025-02-12 11:48 | disposition home or self-care (01) ==
LOC: ANHSURGERY 11:50 → ANH2MED 17:42
PROVIDERS: Physician Assistant Surgical; PCP Nurse Practitioner; Visit Provider Orthopaedic Surgery
PROC: (CPT 23472; principal; 2025-02-11 12:00)
DX: M75.102 Unspecified rotator cuff tear or rupture of left shoulder, not specified as traumatic (principal); M12.812 Other specific arthropathies, not elsewhere classified, left shoulder; F17.220 Nicotine dependence, chewing tobacco, uncomplicated
CPT/HCPCS: 23472; 36415; 73030; 80048; 85025; 86850; 86900; 86901; 97110; 97161; 97165; J0690; A4565; A9270; C1776; J0166; J1100; J1171; J1885; J2003; J2250; J2270; J2405; J2704; J2795; J3010; J3290; J3360; J3373; J7120